=== PATIENT | male | born 1970 | race Asian ===

== ENCOUNTER 2016-10-20 00:31 | Emergency (ER) | payer SELFPAY ==
[~2016-10-20] VITALS: Ht 177.8 cm; Wt 89.8 kg
[~2016-10-20 00:31] MED LIST: ATEN50TA PO; CAT.1 PO; THIA100T13 PO
[2016-10-20 00:40] VITALS: BP_SYST 130
[2016-10-20] MEDS ORDERED: KETOROLAC TROMETHAMINE 30 MG VIAL IVP ONE (01:30)
[2016-10-20] MEDS ORDERED: fentaNYL CITRATE/PF 100 MCG/2 ML AMP IVP ONE ×2 (01:30→03:00)
[2016-10-20] MEDS ORDERED: NACL 0.9% 1,000 ML IV ONE (01:30)
[2016-10-20] MEDS ORDERED: LORazepam 2 MG/ML VIAL (FOR ER USE) IVP ONE ×2 (01:30→03:00)
[2016-10-20 03:37] VITALS: BP_SYST 122
== END 2016-10-20 03:37 | disposition home or self-care (01) ==
LOC: SED 00:31
DX: M48.02 Spinal stenosis, cervical region (principal); M48.04 Spinal stenosis, thoracic region; I10 Essential (primary) hypertension
CPT/HCPCS: 72125; 72128; 96361; 96374; 96375; 96376; 99284; J1885; J2060; J3010; J7030

== ENCOUNTER 2018-08-10 12:38 | Emergency (ER) | payer MEDICAID ==
[~2018-08-10] VITALS: Ht 177.8 cm; Wt 78.9 kg
[~2018-08-10 12:38] MED LIST changes: +ASPI-1153 PO; -CAT.1 PO; +LIP40 PO; +NIAC1CAP PO; -THIA100T13 PO
[2018-08-10 12:43] VITALS: BP_SYST 115
[2018-08-10] MEDS ORDERED: KETOROLAC TROMETHAMINE 60 MG/2 ML VIAL IM ONE (13:45)
[2018-08-10 14:50] VITALS: BP_SYST 111
== END 2018-08-10 14:50 | disposition home or self-care (01) ==
LOC: SED 12:38
DX: M25.561 Pain in right knee (principal); I10 Essential (primary) hypertension; Z90.89 Acquired absence of other organs; Z79.82 Long term (current) use of aspirin; Z79.899 Other long term (current) drug therapy; W19.XXXA Unspecified fall, initial encounter; Y93.68 Activity, volleyball (beach) (court); Y92.89 Other specified places as the place of occurrence of the external cause; Y99.8 Other external cause status
CPT/HCPCS: 29505; 73564; 99283; J1885

== ENCOUNTER 2018-11-26 16:07 | Inpatient (IN) | payer MEDICAID ==
[~2018-11-26] VITALS: Ht 177.8 cm; Wt 81.2 kg
[2018-11-26 16:15] VITALS: BP_SYST 136
--- NOTE | 2018-11-26 16:19 | NUR ---
Patient to ER bed 5 to gown for evaluation. Side rails up. Report given to SUSANNA ANTONIO .
--- NOTE | 2018-11-26 16:25 | NUR ---
Patient is awake, alert, and oriented x4. Patient is complaining of upper abdominal pain 9/10, since this morning. Patient reports history of pancreatitis. Patient reports nausea, sweating, burping.
--- NOTE | 2018-11-26 16:27 | NUR ---
ER Dr. Carrillo at bedside examining patient.
[2018-11-26 16:54] LABS: EOSINOPHILS % (AUTO) 0.2 % (0.0-4.0); HEMOGLOBIN 15.5 g/dL (14.0-18.0); RED CELL DISTRIBUTION WIDTH 12.9 % (9.0-15.0)
[2018-11-26 16:59] LABS: BASOPHILS % (AUTO) 0.3 % (0.0-2.0); HEMATOCRIT 45.4 % (36-54); LYMPHOCYTES % (AUTO) 7.1 % (20.5-51.5); MEAN CORPUSCULAR HEMOGLOBIN 32 pg (27-31); MEAN CORPUSCULAR HGB CONC 34 % (32-36); MEAN CORPUSCULAR VOLUME 93 fL (79.0-98.0); MONOCYTES # (AUTO) 0.5 K/uL (0.0-1.0); MONOCYTES % (AUTO) 3.7 % (1.7-9.3); NEUTROPHILS % (AUTO) 88.7 % (40.0-70.0); PLATELET COUNT (AUTO) 238 K/uL (130-430); WHITE BLOOD COUNT (AUTO) 14.6 K/uL (4.8-10.8)
[2018-11-26 17:06] LABS: CALCIUM 9.4 mg/dL (8.4-11.0); CREATININE 1.14 mg/dL (0.55-1.30); POTASSIUM 3.7 mmol/L (3.5-5.1)
[2018-11-26 17:07] LABS: PROTHROMBIN TIME 10.6 SECS (9.5-12.5)
[2018-11-26 17:19] LABS: ALBUMIN 4.1 g/dL (3.4-4.8); TOTAL BILIRUBIN 1.6 mg/dL (0.0-1.0)
[2018-11-26 17:29] LABS: BILIRUBIN,URINE NEGATIVE (NEGATIVE); BLOOD, URINE NEGATIVE (NEGATIVE); CLARITY/URINE CLEAR (CLEAR); GLUCOSE,URINE NEGATIVE (NEGATIVE); KETONES,URINE NEGATIVE (NEGATIVE); LEUKOCYTE ESTERASE ,URINE NEGATIVE (NEGATIVE); NITRITE, URINE NEGATIVE (NEGATIVE); PH,URINE 5.5 (5.0-8.0); PROTEIN URINE NEGATIVE (NEGATIVE); UROBILINOGEN,URINE 0.2 (0.2-1.0)
[2018-11-26 17:30] LABS: COLOR,URINE AMBER (YELLOW)
[2018-11-26] MEDS ORDERED: MORPHINE 4 MG/ML INJ. SYRINGE IVP ONE ×2 (17:45→18:30)
[2018-11-26] MEDS ORDERED: DIPHENHYDRAMINE INJ 50 MG/ML VIAL IVP ONE (17:45)
[2018-11-26] MEDS ORDERED: TYC3 PO (18:30)
[2018-11-26] MEDS ORDERED: CYAN100082 PO (18:30)
[2018-11-26] MEDS ORDERED: IBUP-1969 PO (18:30)
[2018-11-26] MEDS ORDERED: AMLO10TA88 PO (18:30)
--- NOTE | 2018-11-26 18:35 | NUR ---
Medication reconciliation completed with information provided by patient and patient's . Any prior medication reconciliation on file was reviewed and corrected.
[2018-11-26] MEDS ORDERED: FOLIC ACID 1 MG, THIAMINE HCL 100 MG, MAGNESIUM SULFATE 1 GM, MVI 10 ML in NACL 0.9% 1,... IV ONE (19:15)
[2018-11-26] MEDS ORDERED: MAGNESIUM SULFATE 1 GM/2 ML VIAL ONE (19:28)
[2018-11-26] MEDS ORDERED: FOLIC ACID 5 MG/ML VIAL IV ONE (19:28)
[2018-11-26] MEDS ORDERED: MVI 10 ML VIAL IV ONE (19:28)
[2018-11-26] MEDS ORDERED: THIAMINE HCL 100 MG/ML VIAL ONE (19:28)
--- NOTE | 2018-11-26 19:29 | NUR ---
Patient will be admitted to care of Dr. Canales. Admitted to Tele unit. Will go to room 106A. Belongings list completed. Summary report printed. Report will be given at bedside.
[2018-11-26] MEDS ORDERED: LORazepam 2 MG/ML VIAL IVP PRN (19:30)
[2018-11-26] MEDS ORDERED: FOLIC ACID 1 MG, THIAMINE HCL 100 MG, MAGNESIUM SULFATE 1 GM, MVI 10 ML in NACL 0.9% 1,... IV SCH (19:30)
--- NOTE | 2018-11-26 19:54 | NUR ---
ADMIT NOTE Received pt from ER to the floor with a diagnosis of acute pancreatitis, etoh intoxication. Admission process initiated. patient oriented to pain management, safety and call light-teach back done.
--- NOTE | 2018-11-26 19:54 | NUR ---
Transfer to Tele via ACLS protocol. Licensed nurse present. IV present no signs or symptoms of infiltration.
[2018-11-26 20:09] VITALS: BP_SYST 152
--- NOTE | 2018-11-26 21:05 | NUR ---
PAGED I PAGED DR. LAMB @ [phone] I SPOKE WITH JOSE NORAH LAMB CALLED BACK @ [phone]
[2018-11-26] MEDS ORDERED: HYDROmorphone 1 MG INJ. 1 MG/ML AMPUL IVP PRN (21:15)
--- NOTE | 2018-11-26 21:15 | NUR ---
PHONED PAGED DR ZAINAB SERRANO FOR ORDERS , PATIENT C/O ACUTE ABDOMINAL PAIN 03/12 .
[2018-11-26] MEDS ORDERED: HYDROmorphone 1 MG INJ. 1 MG/ML AMPUL ONE ×2 (21:28→23:24)
[2018-11-26] MEDS ORDERED: ONDANSETRON HCL 4 MG/2 ML VIAL ONE (21:29)
--- NOTE | 2018-11-26 22:51 | NUR ---
Admission Note Received patient from ER with diagnosis of ABDOMINAL PAIN. Initial Plan of Care discussed-patient verbalized understanding. Family at bedside. Oriented to room, call light, pain management and safety.
--- NOTE | 2018-11-26 22:56 | NUR ---
NEW ORDERS OBTAINED DR LAMB .
[2018-11-26] MEDS ORDERED: chlordiazePOXIDE HCL 25 MG CAPSULE PO SCH (23:15)
[2018-11-26] MEDS ORDERED: INSULIN REGULAR, HUMAN 100 UNITS/ML, 10 ML VIAL (novoLIN R) SUBCUT PRN (23:15)
[2018-11-26] MEDS ORDERED: MAG-AL HYDROX/SIMETH 30 ML UDC PO PRN (23:15)
[2018-11-26] MEDS ORDERED: DEXTROSE 50% JECT 50 ML DISP.SYRIN IVP PRN (23:15)
[2018-11-26] MEDS ORDERED: FAMOTIDINE PF 20 MG/2 ML VIAL IVP SCH (23:30)
[2018-11-26] MEDS ORDERED: HYDROmorphone 1 MG INJ. 1 MG/ML AMPUL IVP SCH (23:30)
[2018-11-26] MEDS ORDERED: MAG-AL HYDROX/SIMETH 30 ML UDC PO SCH (23:30)
[2018-11-27 00:08] VITALS: BP_SYST 136
[2018-11-27] MEDS: LR 1,000 ML IV SCH ×4 (00:18→19:15)
--- NOTE | 2018-11-27 00:55 | NUR ---
LORAZEPAM 1 MG IVP GIVEN FOR AGITATION & HELPFUL .
[2018-11-27] MEDS: HYDROmorphone 1 MG INJ. 1 MG/ML AMPUL IVP PRN ×6 (02:18→22:22)
--- NOTE | 2018-11-27 03:51 | NUR ---
DR ZAINAB SERRANO IN TO SEE PATIENT NEW ORDERS OBTAINED LIBRIUM 50 MG PO , LABS FOR THIS AM .
--- NOTE | 2018-11-27 04:02 | NUR ---
CONSULT: CONSULT CALLED FOR DR. JUNG I SPOKE WITH WITH [facility] [place] DR. CAMPA HEAD IRRIGATOR THIS MORNING REASON FOR CONSULT: ACUTE PANCREATITIS REQUESTING CONSULT: DR. LAMB INSIDE SALES LEAD PHONE NUMBER: [phone]
[2018-11-27 05:18] LABS: BASOPHILS % (AUTO) 0.2 % (0.0-2.0); EOSINOPHILS # (AUTO) 0.1 K/uL (0.0-0.4); HEMOGLOBIN 14.7 g/dL (14.0-18.0); LYMPHOCYTES # (AUTO) 0.9 K/uL (1.0-5.5); MEAN CORPUSCULAR HEMOGLOBIN 31 pg (27-31); MEAN CORPUSCULAR HGB CONC 34 % (32-36); MEAN CORPUSCULAR VOLUME 93 fL (79.0-98.0); MONOCYTES # (AUTO) 0.7 K/uL (0.0-1.0); MONOCYTES % (AUTO) 5.3 % (1.7-9.3); NEUTROPHILS # (AUTO) 10.7 K/uL (1.8-7.7); NEUTROPHILS % (AUTO) 86.5 % (40.0-70.0); PLATELET COUNT (AUTO) 205 K/uL (130-430); RED BLOOD CELL COUNT(AUTO) 4.71 MIL/uL (4.2-6.2); RED CELL DISTRIBUTION WIDTH 12.8 % (9.0-15.0); WHITE BLOOD COUNT (AUTO) 12.4 K/uL (4.8-10.8)
[2018-11-27 05:54] LABS: ALBUMIN 3.3 g/dL (3.4-4.8); CALCIUM 8.8 mg/dL (8.4-11.0); CREATININE 0.89 mg/dL (0.55-1.30); POTASSIUM 4.1 mmol/L (3.5-5.1); TOTAL BILIRUBIN 2.1 mg/dL (0.0-1.0)
--- NOTE | 2018-11-27 06:04 | NUR ---
PHONED PAGED DR ZAINAB SERRANO LIPASE [phone]
--- NOTE | 2018-11-27 07:45 | NUR ---
INITIAL ROUNDS Received pt AAOx4, no s/s resp distress, c/o pain to upper abd-will check on pain medication. Plan of care for the day reviewed with pt-pt verbalized his understanding. IVF infusing well to LAC at ordered rate with no s/s infiltration to site. Pain management, disease process, skin and safety discussed-teach back done. Call light within reach.
[2018-11-27 07:48] VITALS: BP_SYST 159
[2018-11-27] MEDS: FAMOTIDINE PF 20 MG/2 ML VIAL IVP SCH ×2 (08:34→21:22)
[2018-11-27] MEDS ORDERED: chlordiazePOXIDE HCL 25 MG CAPSULE PO SCH ×2 (09:00)
[2018-11-27] MEDS ORDERED: FOLIC ACID 1 MG, THIAMINE HCL 100 MG, MAGNESIUM SULFATE 1 GM, MVI 10 ML in NACL 0.9% 1,... IV SCH (09:15)
[2018-11-27] MEDS: ONDANSETRON HCL 4 MG/2 ML VIAL IVP PRN ×2 (11:26→21:19)
[2018-11-27] MEDS ORDERED: FOLIC ACID 1 MG TABLET PO ONE (11:30)
[2018-11-27] MEDS ORDERED: THIAMINE HCL 100 MG TABLET PO ONE (11:30)
--- NOTE | 2018-11-27 11:35 | NUR ---
ROUNDS/PAIN Pt c/o severe pain 10/10 to upper right abd-pt given Dilaudid as ordered, pt also c/o nausea-pt given Zofran as ordered. Light turned down low, curtain pulled to promote rest. Pt's at the bedside. Valerie the [employer] called and informed that the patient is ready for his ultrasound-she stated she is coming now. Call light within reach.
[2018-11-27] MEDS ORDERED: PIPERACILLIN/TAZO 3.375/DEX-IS 50 ML IV ONE (12:00)
[2018-11-27] MEDS ORDERED: GABAPENTIN 300 MG CAPSULE PO ONE (12:30)
[2018-11-27] MEDS ORDERED: HYDROmorphone 2 MG TAB PO PRN (12:30)
[2018-11-27] MEDS: chlordiazePOXIDE HCL 25 MG CAPSULE PO SCH ×3 (13:00→21:29)
[2018-11-27 13:44] VITALS: BP_SYST 149
[2018-11-27] MEDS ORDERED: DIATR MEGLU/DIATRIZ SOD 30 ML SOLUTION PO ONE (13:45)
[2018-11-27] MEDS ORDERED: IOHEXOL 100 ML IV ONE (15:20)
[2018-11-27 17:15] VITALS: BP_SYST 148
[2018-11-27] MEDS: PIPERACILLIN/TAZO 3.375/DEX-IS 50 ML IV SCH (18:39)
--- NOTE | 2018-11-27 18:49 | NUR ---
CLOSING NOTE Pt now resting quietly in bed with no s/s resp distress, no further c/o pain or discomfort. IVF infusing well to LAC at ordered rate with no s/s infiltration to site. Pt's remains at bedside. Pt refusing to take anything by mouth due to it irritating his stomach. Call light within reach.
[2018-11-27 20:20] VITALS: BP_SYST 164
--- NOTE | 2018-11-27 20:20 | NUR ---
INITIAL NOTES: BEDSIDE REPORT DONE.VITAL SIGNS TAKEN.PATIENT IN BED EYES CLOSE ,OPENS WHEN CALLED HIS NAME. ALERT,ORIENTED X3 ,ROOM AIR,SUPINE POSITION, COMPLAINS OF SEVERE ABDOMINAL PAIN ,STATED PAIN MEDICINES GIVEN IS NOT WORKING.ASKED WHEN IS NEXT DUE. TOLD HIM AT 2230HR. JOHN SAYS THAT IS TOO LONG,CAN YOU SOMETHING BEFORE THE TIME OR CALL THE DOCTOR. TENDER ABDOMEN DURING LIGHT PALPATION. AT BEDSIDE.IVF OF LR INFUSING AT 150ML/HR TO LEFT AC SITE CLEAR. BP SLIGHT ELEVATED. SINUS RHYTHM ON MONITOR. WILL MONITOR CLOSELY AND WILL CALL MD. WARM COMPRESS TO ABDOMEN APPLIED SLIGHT RELIEF.
--- NOTE | 2018-11-27 21:05 | NUR ---
CALLED BACK: Massimo LAWRENCE ANSWERED PAGE ,INFORMED PATIENT NEEDS MORE PAIN MEDS ,SINCE CURRENT IV PAIN MEDS NOT WORKING WITH ORDERS. WILL CARRY THEM ONCE AVAILABLE. SAID TO EDUCATE PATIENT NEED OF LIBRUIM /NEURONTIN /DILAUDID PO/IV. DONE.
--- NOTE | 2018-11-27 21:10 | NUR ---
ACCU CHECK: BLOOD SUGAR RESULT 108MG/DL.TOOK PO MEDS AFTER EXPLAINING EFFECTS AND SIDE EFFECTS,AFTER ZOFRAN IV GIVEN. TOOK IT WITH SMALL WATER. REFUSE TO HAVE DINNER CLEAR LIQUIDS.
[2018-11-27] MEDS ORDERED: LORazepam 2 MG/ML VIAL IVP PRN (21:15)
[2018-11-27] MEDS: GABAPENTIN 300 MG CAPSULE PO SCH (21:29)
--- NOTE | 2018-11-27 21:40 | NUR ---
OFFERED DILAUDID IV THIS TIME BUT SAID I NEED AT 10PM. EXPLAINED ALL ORDERS RECEIVED.
--- NOTE | 2018-11-27 22:20 | NUR ---
PAIN: PATIENT CALLED DUE TO SEVERE ABDOMINAL PAIN. LEVEL 8-9/10. DILAUDID 1MG IV GIVEN ORDERED.
[2018-11-28] MEDS: LR 1,000 ML IV SCH ×2 (00:23→09:05)
[2018-11-28] MEDS: PIPERACILLIN/TAZO 3.375/DEX-IS 50 ML IV SCH ×5 (00:24→23:24)
[2018-11-28] MEDS: HYDROmorphone 2 MG TAB PO SCH ×5 (00:27→23:24)
--- NOTE | 2018-11-28 00:27 | NUR ---
PAIN: ROUTINE DILAUDID PO GIVEN 2MG ORDERED,LEVEL 7/10.
--- NOTE | 2018-11-28 00:30 | NUR ---
VOID: VOIDED DARK OSIRIS COLOR URINE VIA URINAL .
[2018-11-28 00:50] VITALS: BP_SYST 145
[2018-11-28] MEDS: chlordiazePOXIDE HCL 25 MG CAPSULE PO SCH ×6 (01:27→21:32)
--- NOTE | 2018-11-28 01:30 | NUR ---
LIBRUIM 50MG PO TAKEN WITHOUT PROBLEM.
--- NOTE | 2018-11-28 03:30 | NUR ---
ROUNDS: PATIENT SLEEPING. IVF INFUSING. AT BEDSIDE. NO DISTRESS. CALL LIGHT WITHIN REACH.
[2018-11-28 04:20] VITALS: BP_SYST 129
[2018-11-28] MEDS: HYDROmorphone 1 MG INJ. 1 MG/ML AMPUL IVP PRN ×2 (04:28→14:43)
--- NOTE | 2018-11-28 04:28 | NUR ---
PAIN: COMPLAIN OF ABDOMINAL PAIN LEVEL 7/10. GRIMACING DURING TURNING TO SIDES. DILAUDID 1 MG IV GIVEN ORDERED.
[2018-11-28 06:18] LABS: BASOPHILS % (AUTO) 0.1 % (0.0-2.0); EOSINOPHILS # (AUTO) 0.1 K/uL (0.0-0.4); HEMOGLOBIN 13.3 g/dL (14.0-18.0); LYMPHOCYTES # (AUTO) 0.9 K/uL (1.0-5.5); LYMPHOCYTES % (AUTO) 6.7 % (20.5-51.5); MEAN CORPUSCULAR HEMOGLOBIN 31 pg (27-31); MEAN CORPUSCULAR HGB CONC 33 % (32-36); MEAN CORPUSCULAR VOLUME 94 fL (79.0-98.0); MONOCYTES # (AUTO) 0.9 K/uL (0.0-1.0); MONOCYTES % (AUTO) 6.2 % (1.7-9.3); NEUTROPHILS # (AUTO) 11.8 K/uL (1.8-7.7); PLATELET COUNT (AUTO) 168 K/uL (130-430); RED BLOOD CELL COUNT(AUTO) 4.26 MIL/uL (4.2-6.2); RED CELL DISTRIBUTION WIDTH 12.6 % (9.0-15.0); WHITE BLOOD COUNT (AUTO) 13.8 K/uL (4.8-10.8)
[2018-11-28 06:24] LABS: ALBUMIN 2.6 g/dL (3.4-4.8); CALCIUM 8.8 mg/dL (8.4-11.0); CREATININE 1.02 mg/dL (0.55-1.30); POTASSIUM 4.8 mmol/L (3.5-5.1); TOTAL BILIRUBIN 1.6 mg/dL (0.0-1.0)
--- NOTE | 2018-11-28 06:35 | NUR ---
CLOSING: ALL DUE MEDS GIVEN. BLOOD SUGAR 89MG/DL. REFUSE ANY JUICE. ON CLEAR LIQUIDS. ALL NEEDS WERE ATTENDED. PAIN FAIRLY CONTROLLED AFTER TAKING PO/IV PAIN MEDS. NO SEIZURE DURING THE SHIFT. NO AGITATION. WILL ENDORSED CRITICAL VALUE OF LIPASE TO AM RN. DID PAGE GI NO CALL BACK.
--- NOTE | 2018-11-28 07:13 | NUR ---
Gi md Dr Louisa Starks was called, Re: CRITICAL lipase level.. Spoke to Sandra.
[2018-11-28 08:00] VITALS: BP_SYST 133
[2018-11-28] MEDS: THIAMINE HCL 100 MG TABLET PO SCH (09:06)
[2018-11-28] MEDS: GABAPENTIN 300 MG CAPSULE PO SCH ×3 (09:07→21:29)
[2018-11-28] MEDS: FAMOTIDINE PF 20 MG/2 ML VIAL IVP SCH ×2 (09:07→21:30)
[2018-11-28] MEDS: FOLIC ACID 1 MG TABLET PO SCH (09:07)
--- NOTE | 2018-11-28 10:36 | NUR ---
ROUNDS Pt resting quietly in bed with no s/s resp distress, pt states pain tolerable at this time. Pt took tablets this morning, pt declining clear liquid tray this morning-stated he "wants to let his stomach rest". Pt's linens changed, given fresh gown. Needs met, call light within reach.
--- NOTE | 2018-11-28 13:35 | NUR ---
ROUNDS Pt resting quietly in bed with no s/s resp distress, pt states pain now tolerable. Pt trying small amounts of juice. Pt's remains at bedside. Call light within reach.
--- NOTE | 2018-11-28 14:24 | NUR ---
Psych consult called: for Dr. Mckinney, regarding alcoholism, ordered by Dr. Canales, spoke with [facility]. FACE SHEET faxed to [phone]
[2018-11-28 15:01] LABS: ANION GAP 5 (5-15); CALCIUM 8.5 mg/dL (8.4-11.0); CHLORIDE 100 mmol/L (98-107); CREATININE 1.04 mg/dL (0.55-1.30); GLUCOSE 91 mg/dL (70-99); POTASSIUM 4.5 mmol/L (3.5-5.1); SODIUM SERUM 136 mmol/L (136-145); UREA NITROGEN, BLOOD 8 mg/dL (8-21)
[2018-11-28 15:02] LABS: GFR AFRICAN AMERICAN 98 mL/min (>90)
[2018-11-28 15:07] LABS: ALCOHOL, BLOOD < 3 mg/dL (<10)
[2018-11-28] MEDS: FOLIC ACID 1 MG, THIAMINE HCL 100 MG, MAGNESIUM SULFATE 1 GM, MVI 10 ML in NACL 0.9% 1,... IV SCH (15:27)
--- NOTE | 2018-11-28 19:24 | NUR ---
CLOSING NOTE Pt resting quietly in bed with no s/s resp distress, no c/o pain or discomfort. Pt's family at bedside. Banana bag infusing well at ordered rate with no s/s infiltration to site. Needs met, call light within reach.
--- NOTE | 2018-11-28 19:40 | NUR ---
Initial Note Received patient asleep but easily arousable. Awake, alert and oriented but looks sleepy. Family at the bedside. No SOB noted. Denies any pain or n/v at this time. IVF infusing. Skin intact and no peripheral edema noted. Room air. Patient was transferred from room 106-A to 113-B. Care and monitoring will be provided per protocol. Call light within reach. Bed alarm on and at lowest position at all times. Needs attended. Repositions self. Kept warm and comfortable.
[2018-11-28 20:00] VITALS: BP_SYST 125
--- NOTE | 2018-11-28 21:32 | NUR ---
RN Note Due meds given, tolerated well. Patient ambulated around the unit with his with steady gait and no SOB. Safety/fall precautions advised.
--- NOTE | 2018-11-28 23:15 | NUR ---
Dr. Canales re fever Called Dr. Canales for patient's fever of 101.9. Orders made and carried out. Notified lab of Blood culture x2 and lactic acid. airport representative [place] h[place].
[2018-11-28] MEDS: ACETAMINOPHEN 325 MG TABLET PO PRN (23:24)
--- NOTE | 2018-11-28 23:24 | NUR ---
Fever medication Medicated for fever and due meds are also given as well. Cooling measures provided as well as ice packs. Advised patient's that we need urine culture and provided new urinal at the bedside. Repositions himself. No SOB noted and denies any pain. Kept comfortable.
--- NOTE | 2018-11-28 23:39 | NUR ---
CONSULTATION PAGED/CALLED Reason for Consultation: FEVER Person Who was Notified: RODOLFO Consulting Physician: DR. BELLO (ON-CALL IS DR. 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 LAMB
[2018-11-29 00:10] VITALS: BP_SYST 118
[2018-11-29] MEDS: chlordiazePOXIDE HCL 25 MG CAPSULE PO SCH ×6 (00:31→20:37)
--- NOTE | 2018-11-29 01:00 | NUR ---
RN Note Patient asleep but arousable. No complaints at this time. Afebrile. at the bedside. Kept warm and comfortable.
--- NOTE | 2018-11-29 03:00 | NUR ---
RN Note Sleeping at this time. No SOB or grimacing noted.
[2018-11-29] MEDS: PIPERACILLIN/TAZO 3.375/DEX-IS 50 ML IV SCH ×3 (05:46→17:17)
[2018-11-29] MEDS: HYDROmorphone 2 MG TAB PO SCH ×2 (05:47→11:26)
--- NOTE | 2018-11-29 06:00 | NUR ---
BS of 58 and 54 Patient is awake and alert, a little weak. at the bedside. Blood sugar was 54 , rechecked 58. D50 given. No complain of dizziness, shakiness and other signs of hypoglycemia. Will recheck blood sugar later.
[2018-11-29 06:46] LABS: ALBUMIN 2.3 g/dL (3.4-4.8); BILIRUBIN,DIRECT 0.6 mg/dL (0.0-0.3); CALCIUM 8.7 mg/dL (8.4-11.0); CREATININE 1.11 mg/dL (0.55-1.30); POTASSIUM 3.6 mmol/L (3.5-5.1); TOTAL BILIRUBIN 1.5 mg/dL (0.0-1.0)
--- NOTE | 2018-11-29 06:49 | NUR ---
End Note Afebrile. VS stable. No complain of SOB, pain, or n/v throughout the night. was at the bedside all night. Ambulates well with assist. said that patient has been having hallucinations at times-will endorse. Room air. Latest blood sugar (rechecked) was 138. Self reposition. Need urine specimen for culture-will endorse. Refused SCDs. AM labs today. Had fever at [place] 101.9, Dr. Canales was called and orders were made and carried out. Fall precaution observed. Care and monitoring provided per protocol. Call light within reach. Bed alarm on and at lowest position at all times. Needs attended. Kept warm and comfortable.
[2018-11-29 06:56] LABS: BASOPHILS % (AUTO) 0.3 % (0.0-2.0); EOSINOPHILS # (AUTO) 0.4 K/uL (0.0-0.4); EOSINOPHILS % (AUTO) 3.8 % (0.0-4.0); HEMATOCRIT 36.8 % (36-54); HEMOGLOBIN 12.3 g/dL (14.0-18.0); LYMPHOCYTES # (AUTO) 1.2 K/uL (1.0-5.5); LYMPHOCYTES % (AUTO) 11.7 % (20.5-51.5); MEAN CORPUSCULAR HEMOGLOBIN 32 pg (27-31); MEAN CORPUSCULAR HGB CONC 34 % (32-36); MEAN CORPUSCULAR VOLUME 95 fL (79.0-98.0); MONOCYTES # (AUTO) 0.7 K/uL (0.0-1.0); MONOCYTES % (AUTO) 6.3 % (1.7-9.3); NEUTROPHILS # (AUTO) 8.3 K/uL (1.8-7.7); NEUTROPHILS % (AUTO) 77.9 % (40.0-70.0); PLATELET COUNT (AUTO) 145 K/uL (130-430); RED BLOOD CELL COUNT(AUTO) 3.88 MIL/uL (4.2-6.2); RED CELL DISTRIBUTION WIDTH 12.6 % (9.0-15.0); WHITE BLOOD COUNT (AUTO) 10.6 K/uL (4.8-10.8)
--- NOTE | 2018-11-29 07:25 | NUR ---
AM ROUNDS: PATIENT ON THE BED FAST ASLEEP. RECEIVED REPORT FROM NIGHT NURSE ALLY. CALL LIGHT WITH IN REACH. BED LOCKED AT LOWEST POSITION. STABLE.
[2018-11-29 08:17] VITALS: BP_SYST 120
[2018-11-29] MEDS: FAMOTIDINE PF 20 MG/2 ML VIAL IVP SCH ×2 (08:39→20:36)
[2018-11-29] MEDS: ACETAMINOPHEN 325 MG TABLET PO PRN (08:39)
[2018-11-29] MEDS: THIAMINE HCL 100 MG TABLET PO SCH (08:40)
[2018-11-29] MEDS: FOLIC ACID 1 MG TABLET PO SCH (08:40)
[2018-11-29] MEDS: GABAPENTIN 300 MG CAPSULE PO SCH ×3 (08:40→20:38)
--- NOTE | 2018-11-29 09:00 | NUR ---
TEMP: RECHECKED TEMP ,FEBRILE COOLING MEASURES RENDERED AND DUE PO TYLENOL GIVEN FOR FEVER.
--- NOTE | 2018-11-29 09:31 | NUR ---
FOLLOW UP CONSULT : SPOKE WITH YE FROM OFFICE ,FACE SHEET NEEDED TO BE RESENT .RESENT FACE SHEET FAX#[phone]
--- NOTE | 2018-11-29 11:30 | NUR ---
BLOOD SUGAR: BLOOD SUGAR TAKEN,NO INSULIN NEEDED PER SLIDING SCALE.
--- NOTE | 2018-11-29 12:00 | NUR ---
LUNCH: PATIENT HAVING FULL LIQUID,TOLERATED WELL.
[2018-11-29 12:17] VITALS: BP_SYST 113
--- NOTE | 2018-11-29 13:00 | NUR ---
BACLOFEN: BACLOFEN PO NOT GIVEN PATIENT DUE TO O2 SATURATION DECREASED TO 90%,MD NOTIFIED. PLACED PATIENT ON O2 2L/NC,O2 SAT=91%.
[2018-11-29] MEDS: FOLIC ACID 1 MG, THIAMINE HCL 100 MG, MAGNESIUM SULFATE 1 GM, MVI 10 ML in NACL 0.9% 1,... IV SCH (15:44)
[2018-11-29 16:18] VITALS: BP_SYST 104
--- NOTE | 2018-11-29 17:26 | NUR ---
BLOOD SUGAR: BLOOD SUGAR TAKEN ,NO INSULIN NEEDED PER SLIDING SCALE.
--- NOTE | 2018-11-29 17:30 | NUR ---
TEMP: RECHECKED TEMP=98.4 FAHRENHEIT,AFEBRILE.
--- NOTE | 2018-11-29 18:13 | NUR ---
PT WALKING WITH ASSIST: PATIENT WALKING WITH ASSISTING IN THE HALLWAY,WITH NO PROBLEM.
[2018-11-29] MEDS ORDERED: HYDROmorphone 1 MG INJ. 1 MG/ML AMPUL IVP PRN (19:00)
--- NOTE | 2018-11-29 19:30 | NUR ---
closing notes: patient sitting on the chair by the window. report given to night nurse luis. no complained made. instructed to call for assistance.
[2018-11-29 19:53] VITALS: BP_SYST 134
--- NOTE | 2018-11-29 19:59 | NUR ---
PATIENT AWAKE ALERT ambulating in room verbally indicative FALL MEASURES implemented PT verbalize understanding .
--- NOTE | 2018-11-29 22:11 | NUR ---
LIBRIUM 25 MG PO administer as ordered for alcohol with drawl fall measures implemented .
[2018-11-30 00:31] VITALS: BP_SYST 128
[2018-11-30] MEDS: PIPERACILLIN/TAZO 3.375/DEX-IS 50 ML IV SCH ×4 (00:42→17:30)
[2018-11-30] MEDS: chlordiazePOXIDE HCL 25 MG CAPSULE PO SCH ×6 (00:42→20:24)
[2018-11-30] MEDS: HYDROmorphone 2 MG TAB PO SCH ×3 (02:00→18:00)
--- NOTE | 2018-11-30 02:19 | NUR ---
PATIENT UP OUT OF BED USING URINAL CLEAR YELLOW URINE NOTED , TOLERATE NO SON NOTED .
--- NOTE | 2018-11-30 02:20 | NUR ---
REFUSE DILAUDID 2 MG PO .
[2018-11-30 06:50] LABS: BASOPHILS % (AUTO) 0.3 % (0.0-2.0); EOSINOPHILS # (AUTO) 0.5 K/uL (0.0-0.4); HEMATOCRIT 32.6 % (36-54); LYMPHOCYTES % (AUTO) 11.1 % (20.5-51.5); MEAN CORPUSCULAR HEMOGLOBIN 32 pg (27-31); MEAN CORPUSCULAR HGB CONC 34 % (32-36); MEAN CORPUSCULAR VOLUME 95 fL (79.0-98.0); MONOCYTES # (AUTO) 0.8 K/uL (0.0-1.0); NEUTROPHILS # (AUTO) 6.8 K/uL (1.8-7.7); NEUTROPHILS % (AUTO) 74.6 % (40.0-70.0); PLATELET COUNT (AUTO) 147 K/uL (130-430); RED BLOOD CELL COUNT(AUTO) 3.43 MIL/uL (4.2-6.2); RED CELL DISTRIBUTION WIDTH 12.4 % (9.0-15.0); WHITE BLOOD COUNT (AUTO) 9.1 K/uL (4.8-10.8)
[2018-11-30 07:15] LABS: ALBUMIN 2.1 g/dL (3.4-4.8); CALCIUM 8.3 mg/dL (8.4-11.0); CREATININE 0.97 mg/dL (0.55-1.30); TOTAL BILIRUBIN 1.1 mg/dL (0.0-1.0)
--- NOTE | 2018-11-30 07:25 | NUR ---
AM ROUNDS: PATIENT FAST ASLEEP DURING ROUNDS. BEDSIDE REPORT GIVEN BY NIGHT NURSE FERNANDO. CALL LIGHT WITH IN REACH. BED LOCKED AT LOWEST POSITION. BED ALARM ON. STABLE.
[2018-11-30 08:06] VITALS: BP_SYST 114
[2018-11-30] MEDS: FAMOTIDINE PF 20 MG/2 ML VIAL IVP SCH ×2 (08:26→20:23)
[2018-11-30] MEDS: THIAMINE HCL 100 MG TABLET PO SCH (08:26)
[2018-11-30] MEDS: FOLIC ACID 1 MG TABLET PO SCH (08:26)
[2018-11-30] MEDS: GABAPENTIN 300 MG CAPSULE PO SCH ×3 (08:34→20:24)
--- NOTE | 2018-11-30 08:36 | NUR ---
Refused Librium/Neurontin: Spoke with this morning and requested not to give librium/neurontin due to patient is confused.
--- NOTE | 2018-11-30 11:32 | NUR ---
BLOOD SUGAR: BLOOD SUGAR TAKEN,NO INSULIN COVERAGE PER SLIDING SCALE.
[2018-11-30 12:36] VITALS: BP_SYST 112
--- NOTE | 2018-11-30 15:30 | NUR ---
SNACKS: PATIENT REQUESTED A SNACK BECAUSE HE IS HUNGRY. PATIENT ATE VEGETARIAN BURGER AND TOLERATED IT WELL.
[2018-11-30] MEDS: FOLIC ACID 1 MG, THIAMINE HCL 100 MG, MAGNESIUM SULFATE 1 GM, MVI 10 ML in NACL 0.9% 1,... IV SCH (15:39)
[2018-11-30 17:07] VITALS: BP_SYST 100
--- NOTE | 2018-11-30 17:12 | NUR ---
BLOOD SUGAR: BLOOD SUGAR TAKEN, NO INSULIN NEEDED PER SLIDING SCALE.
--- NOTE | 2018-11-30 18:20 | NUR ---
RN NOTES: POTASSIUM =3.0,DR MELENDREZIUM HEATER ROOM HELPER FOR DR LAMB INFORMED DURING HIS ROUNDS THIS TIME.
--- NOTE | 2018-11-30 18:30 | NUR ---
END OF SHIFT: PATIENT RESTING. AT THE BEDSIDE. BANANA BAG ON GOING. CALL LIGHT WITH IN REACH. BED LOCKED AT LOWEST POSITION.BED ALARM ON. CONDITION GUARDED.
[2018-11-30] MEDS ORDERED: POTASSIUM CHLORIDE 20 MEQ/PKT PACKET PO ONE (19:30)
[2018-11-30 20:00] VITALS: BP_SYST 114
[2018-11-30] MEDS ORDERED: MEROPENEM 500 MG VIAL IV ONE (21:07)
--- NOTE | 2018-11-30 21:15 | NUR ---
PATIENT REFUSE LIBRIUM 25 MG PO
[2018-11-30] MEDS: MEROPENEM 1 GM in NS 100 ML IV SCH (21:43)
--- NOTE | 2018-11-30 22:54 | NUR ---
MERREM 1 GM IVPB administer as ordered patient awake alert no adverse reaction skin dry warm .
--- NOTE | 2018-11-30 22:56 | NUR ---
DILAUDID 1 MG IVP GIVEN FOR GENERAL PAIN /10 comfort measures helpful .
[2018-11-30 23:12] VITALS: BP_SYST 102
[2018-12-01] MEDS: chlordiazePOXIDE HCL 25 MG CAPSULE PO SCH ×2 (01:00→05:00)
[2018-12-01] MEDS: HYDROmorphone 2 MG TAB PO SCH (02:00)
--- NOTE | 2018-12-01 03:33 | NUR ---
patient awake out of room ambulating assist @ the bedside FALL RISK PROTOCOL effective no SOB noted .
--- NOTE | 2018-12-01 03:38 | NUR ---
PATIENT REFUSE DILAUDID 2 MG PO
[2018-12-01] MEDS: MEROPENEM 1 GM in NS 100 ML IV SCH (06:00)
--- NOTE | 2018-12-01 07:15 | NUR ---
received report from raimundo nurse at the bedside. patient stable. afebrile and vitals signs stable. has iv access on the left forearm dry and intact. breathing even and unlabored. abdomen soft and non distended. will continue to monitor patients status. bed in low position. call lights within reach. ambulatory
[2018-12-01 07:53] VITALS: BP_SYST 120
[2018-12-01] MEDS: GABAPENTIN 300 MG CAPSULE PO SCH (08:44)
[2018-12-01] MEDS: THIAMINE HCL 100 MG TABLET PO SCH (08:44)
[2018-12-01] MEDS: FOLIC ACID 1 MG TABLET PO SCH (08:45)
[2018-12-01] MEDS ORDERED: POTASSIUM CHLORIDE 20 MEQ/PKT PACKET PO SCH (09:00)
--- NOTE | 2018-12-01 09:00 | NUR ---
medication given as ordered. no pain nor acute distress noted.
--- NOTE | 2018-12-01 09:34 | NUR ---
PAGED PAGED JOANNA LEVY AT [phone] SPOKE WITH HIS EXCHANGE, THEY INFORMED ME THAT LILIAN PENG IS SECURITIES CONSULTANT.
--- NOTE | 2018-12-01 09:40 | NUR ---
dr plummer call back, its okay, if patient refused to stay. let signed [place] form discharge against medical advice.
--- NOTE | 2018-12-01 09:48 | NUR ---
Nutrition Update Ephraim Scale 18 noted. Pt admitted for acute pancreatitis, alcohol intoxication. Diet: CCHO, soft, vegan BMI: 25.7 kg/m2 RD to follow per nutrition care standards.
--- NOTE | 2018-12-01 09:54 | NUR ---
patient left in stable condition, refused to have wheelchair. will go home discharge against medical advice. and signed by the patient. scdh id band removed. iv access removed. instructed to follow up with primary care doctor.
--- NOTE | 2018-12-01 18:59 | NUR ---
the patient left a message For Dr. Canales or whoever is covering. his cell phone number is [phone]. please inform the doctor if he needs any prescription or treatment to continue at home, if it is possible.
== END 2018-12-01 09:54 | disposition left against medical advice (07) | DRG 282 ==
LOC: SED 16:07 → STU 19:21 → SMU 11-28 15:39
PROVIDERS: ADMIT Internal Medicine; ATTEND Internal Medicine
DX: K85.20 Alcohol induced acute pancreatitis without necrosis or infection (principal); R65.10 Systemic inflammatory response syndrome (SIRS) of non-infectious origin without acute organ dysfunction; E78.5 Hyperlipidemia, unspecified; Z53.21 Procedure and treatment not carried out due to patient leaving prior to being seen by health care provider; I10 Essential (primary) hypertension; F10.129 Alcohol abuse with intoxication, unspecified; F40.10 Social phobia, unspecified; F41.1 Generalized anxiety disorder; Z79.82 Long term (current) use of aspirin; Z79.899 Other long term (current) drug therapy
CPT/HCPCS: 36415; 76700-TC; 80048; 80053; 80061; 80076; 81003; 82150-TC; 82962; 83605; 83690-TC; 84478-TC; 85025; 85610-TC; 87040-TC; 87086; 93005; 96365; 96375; 96376; 99285; G0378; G0482; J1170; J1200; J1815; J2060; J2185; J2270; J2405; J2543; J3411; J3475; J3490; J7030; J7120; Q9964; Q9967

== ENCOUNTER 2019-03-11 20:49 | Inpatient (IN) | payer MEDICAID ==
[~2019-03-11] VITALS: Ht 177.8 cm; Wt 83.5 kg
[~2019-03-11 20:49] MED LIST changes: +AMLO10TA88 PO; -ATEN50TA PO; -NIAC1CAP PO
[2019-03-11 20:58] VITALS: BP_SYST 140
[2019-03-11 21:21] LABS: BILIRUBIN,URINE NEGATIVE (NEGATIVE); BLOOD, URINE NEGATIVE (NEGATIVE); CLARITY/URINE CLEAR (CLEAR); COLOR,URINE YELLOW (YELLOW); GLUCOSE,URINE NEGATIVE (NEGATIVE); KETONES,URINE NEGATIVE (NEGATIVE); LEUKOCYTE ESTERASE ,URINE NEGATIVE (NEGATIVE); NITRITE, URINE NEGATIVE (NEGATIVE); PROTEIN URINE NEGATIVE (NEGATIVE); UROBILINOGEN,URINE 0.2 (0.2-1.0)
[2019-03-11] MEDS ORDERED: ONDANSETRON HCL 4 MG/2 ML VIAL IVP ONE (21:22)
[2019-03-11] MEDS ORDERED: ONDANSETRON HCL 4 MG/2 ML VIAL ONE (21:26)
[2019-03-11] MEDS ORDERED: NACL 0.9% 1,000 ML IV ONE ×2 (21:30→22:45)
[2019-03-11] MEDS ORDERED: MORPHINE 4 MG/ML INJ. SYRINGE IVP ONE ×2 (21:30→23:30)
[2019-03-11 21:43] LABS: BASOPHILS # (AUTO) 0.1 K/uL (0.0-0.2); BASOPHILS % (AUTO) 0.6 % (0.0-2.0); EOSINOPHILS % (AUTO) 0.3 % (0.0-4.0); HEMATOCRIT 43.3 % (36-54); HEMOGLOBIN 14.8 g/dL (14.0-18.0); LYMPHOCYTES # (AUTO) 1.5 K/uL (1.0-5.5); LYMPHOCYTES % (AUTO) 13.7 % (20.5-51.5); MEAN CORPUSCULAR HEMOGLOBIN 32 pg (27-31); MEAN CORPUSCULAR HGB CONC 34 % (32-36); MEAN CORPUSCULAR VOLUME 93 fL (79.0-98.0); MONOCYTES # (AUTO) 0.6 K/uL (0.0-1.0); MONOCYTES % (AUTO) 5.3 % (1.7-9.3); NEUTROPHILS # (AUTO) 8.5 K/uL (1.8-7.7); NEUTROPHILS % (AUTO) 80.1 % (40.0-70.0); RED BLOOD CELL COUNT(AUTO) 4.65 MIL/uL (4.2-6.2); RED CELL DISTRIBUTION WIDTH 12.8 % (9.0-15.0); WHITE BLOOD COUNT (AUTO) 10.6 K/uL (4.8-10.8)
[2019-03-11 21:50] LABS: ANION GAP 15 (5-15); CALCIUM 8.6 mg/dL (8.4-11.0); CHLORIDE 100 mmol/L (98-107); CREATININE 1.06 mg/dL (0.55-1.30); GLUCOSE 175 mg/dL (70-99); POTASSIUM 3.9 mmol/L (3.5-5.1); SODIUM SERUM 137 mmol/L (136-145); UREA NITROGEN, BLOOD 14 mg/dL (8-21)
[2019-03-11 21:53] LABS: GFR AFRICAN AMERICAN 95 mL/min (>90)
[2019-03-11 21:58] LABS: ALANINE AMINOTRANSFERASE 57 U/L (12-78); ALBUMIN 3.8 g/dL (3.4-4.8); AMYLASE 127 U/L (0-100); ASPARTATE AMINOTRANSFERASE 44 U/L (10-37); LIPASE 895 U/L (73-393); TOTAL BILIRUBIN 0.9 mg/dL (0.0-1.0)
[2019-03-11 21:59] LABS: PLATELET COUNT (AUTO) 300 K/uL (130-430)
[2019-03-11] MEDS ORDERED: LORazepam 1 MG TABLET PO SCH (22:45)
[2019-03-11] MEDS ORDERED: MORPHINE 4 MG/ML INJ. SYRINGE IVP PRN (22:45)
[2019-03-11] MEDS ORDERED: HYDROcodone/ACETAMIN 7.5-325 MG TAB PO PRN (22:45)
[2019-03-11] MEDS ORDERED: IOHEXOL 100 ML IV ONE (23:01)
[2019-03-11] MEDS ORDERED: CAPT25TA3 PO (23:21)
[2019-03-11] MEDS ORDERED: ASPI-1077 PO (23:21)
[2019-03-11 23:51] VITALS: BP_SYST 134
[2019-03-12] VITALS (7 sets, daily range): BP systolic 134–149
[2019-03-12] MEDS: LORazepam 2 MG/ML VIAL IVP SCH ×2 (00:45→06:00)
[2019-03-12] MEDS: ONDANSETRON HCL 4 MG/2 ML VIAL IVP PRN ×2 (01:33→08:29)
[2019-03-12] MEDS ORDERED: HYDROmorphone 2 MG/ML VIAL IVP PRN (03:00)
[2019-03-12 03:45] LABS: PHOSPHORUS 5.4 mg/dL (2.7-4.5)
[2019-03-12] MEDS: HYDROmorphone 2 MG/ML VIAL IVP PRN ×5 (05:45→21:28)
[2019-03-12] MEDS ORDERED: FOLIC ACID 1 MG, THIAMINE HCL 100 MG, MAGNESIUM SULFATE 1 GM, MVI 10 ML in NACL 0.9% 1,... IV ONE (07:00)
[2019-03-12] MEDS ORDERED: NACL 0.9% IV ONE (08:00)
[2019-03-12] MEDS ORDERED: MVI IV ONE (08:00)
[2019-03-12] MEDS ORDERED: FOLIC ACID 1 MG, MAGNESIUM SULFATE 1 GM in NS 100 ML IV ONE (08:00)
[2019-03-12] MEDS ORDERED: THIAMINE HCL IV ONE (08:00)
[2019-03-12] MEDS: KETOROLAC TROMETHAMINE 30 MG VIAL IVP SCH ×3 (11:04→23:53)
[2019-03-12] MEDS: NACL 0.9% 1,000 ML IV SCH ×2 (16:18→23:05)
[2019-03-12] MEDS ORDERED: LORazepam 1 MG TABLET PO SCH (22:45)
[2019-03-13 00:48] VITALS: BP_SYST 139
[2019-03-13] MEDS: HYDROmorphone 2 MG/ML VIAL IVP PRN ×5 (01:56→20:52)
[2019-03-13] MEDS: KETOROLAC TROMETHAMINE 30 MG VIAL IVP SCH ×3 (05:59→15:07)
[2019-03-13] MEDS: NACL 0.9% 1,000 ML IV SCH ×3 (05:59→18:55)
[2019-03-13 07:12] LABS: HEMATOCRIT 41.2 % (36-54); MEAN CORPUSCULAR HEMOGLOBIN 32 pg (27-31); MEAN CORPUSCULAR HGB CONC 34 % (32-36); MEAN CORPUSCULAR VOLUME 94 fL (79.0-98.0); PLATELET COUNT (AUTO) 189 K/uL (130-430); RED BLOOD CELL COUNT(AUTO) 4.37 MIL/uL (4.2-6.2); RED CELL DISTRIBUTION WIDTH 12.7 % (9.0-15.0)
[2019-03-13 07:21] LABS: CALCIUM 8.6 mg/dL (8.4-11.0); CREATININE 0.91 mg/dL (0.55-1.30); PHOSPHORUS 2.3 mg/dL (2.7-4.5); TOTAL BILIRUBIN 1.1 mg/dL (0.0-1.0)
[2019-03-13 07:32] LABS: WHITE BLOOD COUNT (AUTO) 14.8 K/uL (4.8-10.8)
[2019-03-13 08:40] VITALS: BP_SYST 148
[2019-03-13] MEDS: LISINOPRIL 5 MG TABLET PO SCH (08:50)
[2019-03-13] MEDS: ASPIRIN 81 MG TABLET(ECOTRIN) PO SCH (08:50)
[2019-03-13] MEDS: amLODIPine BESYLATE 10 MG TABLET PO SCH (08:50)
[2019-03-13] MEDS: FOLIC ACID 1 MG TABLET PO SCH (08:50)
[2019-03-13] MEDS: ATORVASTATIN 20 MG TABLET PO SCH (08:50)
[2019-03-13] MEDS: THIAMINE HCL 100 MG TABLET PO SCH (08:50)
[2019-03-13] MEDS: HEPARIN SODIUM,PORCINE 5000 UNITS/ML VIAL SUBCUT SCH ×2 (08:53→20:57)
[2019-03-13] MEDS ORDERED: CAPTOPRIL 25 MG TABLET PO SCH (09:00)
[2019-03-13 10:11] LABS: ATYPICAL LYMPHOCYTES % 0 % (0-0); BAND % (MANUAL) 13 % (0-6); BASOPHILS % (MANUAL) 0 % (0-2); EOSINOPHILS % (MANUAL) 0 % (0-7); LYMPHOCYTES % (MANUAL) 4 % (20-46); MONOCYTES % (MANUAL) 3 % (0-11)
[2019-03-13 11:21] VITALS: BP_SYST 142
[2019-03-13 15:10] VITALS: BP_SYST 137
[2019-03-13] MEDS ORDERED: KETOROLAC TROMETHAMINE 30 MG VIAL IVP SCH (15:23)
[2019-03-13] MEDS: KETOROLAC TROMETHAMINE 15 MG VIAL IVP SCH ×2 (18:56→23:19)
[2019-03-13 20:50] VITALS: BP_SYST 139
[2019-03-14 01:03] VITALS: BP_SYST 133
[2019-03-14] MEDS: HYDROmorphone 2 MG/ML VIAL IVP PRN (01:31)
[2019-03-14] MEDS: NACL 0.9% 1,000 ML IV SCH ×2 (01:35→07:59)
[2019-03-14] MEDS: KETOROLAC TROMETHAMINE 15 MG VIAL IVP SCH ×4 (04:17→14:04)
[2019-03-14 06:27] LABS: BASOPHILS % (AUTO) 0.2 % (0.0-2.0); EOSINOPHILS # (AUTO) 0.3 K/uL (0.0-0.4); EOSINOPHILS % (AUTO) 2.6 % (0.0-4.0); HEMATOCRIT 35.5 % (36-54); LYMPHOCYTES # (AUTO) 0.7 K/uL (1.0-5.5); LYMPHOCYTES % (AUTO) 6.8 % (20.5-51.5); MEAN CORPUSCULAR HEMOGLOBIN 32 pg (27-31); MEAN CORPUSCULAR HGB CONC 34 % (32-36); MEAN CORPUSCULAR VOLUME 95 fL (79.0-98.0); MONOCYTES # (AUTO) 0.6 K/uL (0.0-1.0); MONOCYTES % (AUTO) 5.4 % (1.7-9.3); NEUTROPHILS # (AUTO) 9.3 K/uL (1.8-7.7); PLATELET COUNT (AUTO) 125 K/uL (130-430); RED BLOOD CELL COUNT(AUTO) 3.76 MIL/uL (4.2-6.2); RED CELL DISTRIBUTION WIDTH 12.4 % (9.0-15.0)
[2019-03-14 06:51] LABS: CALCIUM 8.4 mg/dL (8.4-11.0); CREATININE 0.75 mg/dL (0.55-1.30); PHOSPHORUS 1.3 mg/dL (2.7-4.5); POTASSIUM 3.3 mmol/L (3.5-5.1)
[2019-03-14 08:00] VITALS: BP_SYST 131
[2019-03-14] MEDS: FOLIC ACID 1 MG TABLET PO SCH (08:00)
[2019-03-14] MEDS: ATORVASTATIN 20 MG TABLET PO SCH (08:00)
[2019-03-14] MEDS: ASPIRIN 81 MG TABLET(ECOTRIN) PO SCH (08:00)
[2019-03-14] MEDS: THIAMINE HCL 100 MG TABLET PO SCH (08:00)
[2019-03-14] MEDS: HEPARIN SODIUM,PORCINE 5000 UNITS/ML VIAL SUBCUT SCH (08:01)
[2019-03-14] MEDS: amLODIPine BESYLATE 10 MG TABLET PO SCH (08:01)
[2019-03-14] MEDS: LISINOPRIL 5 MG TABLET PO SCH (08:01)
[2019-03-14] MEDS ORDERED: K PHOS 30 MM in NS 250 ML IV ONE (08:30)
[2019-03-14] MEDS ORDERED: POTASSIUM CHLORIDE 20 MEQ TAB.PRT.SR PO ONE (08:45)
[2019-03-14 12:10] VITALS: BP_SYST 133
[2019-03-14] MEDS ORDERED: HYDR-4272 PO (12:10)
[2019-03-14 13:06] VITALS: BP_SYST 133
[2019-03-14 16:42] VITALS: BP_SYST 130
[2019-03-14 17:48] LABS: PHOSPHORUS 1.9 mg/dL (2.7-4.5); POTASSIUM 4.7 mmol/L (3.5-5.1)
== END 2019-03-14 18:30 | disposition home or self-care (01) | DRG 282 ==
LOC: SED 20:49 → SMU 22:38
PROVIDERS: ADMIT Family Medicine; ATTEND Family Medicine
DX: K85.20 Alcohol induced acute pancreatitis without necrosis or infection (principal); E83.39 Other disorders of phosphorus metabolism; F10.20 Alcohol dependence, uncomplicated; E78.5 Hyperlipidemia, unspecified; I10 Essential (primary) hypertension; R73.9 Hyperglycemia, unspecified; R74.0 Nonspecific elevation of levels of transaminase and lactic acid dehydrogenase [LDH]; Z79.899 Other long term (current) drug therapy; Z79.82 Long term (current) use of aspirin; Z90.49 Acquired absence of other specified parts of digestive tract
CPT/HCPCS: 36415; 80048; 80053; 80061; 81003; 82150-TC; 83036; 83690-TC; 83735-TC; 84100-TC; 84132-TC; 84484; 85007; 85025; 85027; 85379; 93005; 96361; 96374; 96375; 96376; 99285; J1170; J1644; J1885; J2060; J2270; J2405; J3411; J3475; J3490; J7030; J7050; Q9967

== ENCOUNTER 2021-01-04 12:27 | Emergency (ER) | payer MEDICAID ==
[~2021-01-04] VITALS: Ht 177.8 cm; Wt 74.8 kg
[~2021-01-04 12:27] MED LIST changes: -ASPI-1153 PO; +ASPI-1393 PO; +CAPT25TA3 PO; +HYDR-4272 PO
[2021-01-04 12:56] VITALS: BP_SYST 126
[2021-01-04 13:06] LABS: BASOPHILS # (AUTO) 0.1 K/uL (0.0-0.2); BASOPHILS % (AUTO) 0.6 % (0.0-2.0); EOSINOPHILS # (AUTO) 0.2 K/uL (0.0-0.4); EOSINOPHILS % (AUTO) 2.5 % (0.0-4.0); HEMATOCRIT 40.1 % (36-54); HEMOGLOBIN 13.5 g/dL (14.0-18.0); LYMPHOCYTES # (AUTO) 2.4 K/uL (1.0-5.5); LYMPHOCYTES % (AUTO) 26.6 % (20.5-51.5); MEAN CORPUSCULAR HEMOGLOBIN 31 pg (27-31); MEAN CORPUSCULAR HGB CONC 34 % (32-36); MEAN CORPUSCULAR VOLUME 92 fL (79.0-98.0); MONOCYTES # (AUTO) 0.5 K/uL (0.0-1.0); MONOCYTES % (AUTO) 5.7 % (1.7-9.3); NEUTROPHILS # (AUTO) 5.9 K/uL (1.8-7.7); NEUTROPHILS % (AUTO) 64.6 % (40.0-70.0); PLATELET COUNT (AUTO) 222 K/uL (130-430); RED BLOOD CELL COUNT(AUTO) 4.37 MIL/uL (4.2-6.2); RED CELL DISTRIBUTION WIDTH 12.3 % (9.0-15.0); WHITE BLOOD COUNT (AUTO) 9.1 K/uL (4.8-10.8)
[2021-01-04 13:40] LABS: ANION GAP 14 (5-15); CALCIUM 8.7 mg/dL (8.4-11.0); CHLORIDE 106 mmol/L (98-107); CREATININE 0.97 mg/dL (0.55-1.30); GLUCOSE 149 mg/dL (70-99); POTASSIUM 3.5 mmol/L (3.5-5.1); SODIUM SERUM 142 mmol/L (136-145); UREA NITROGEN, BLOOD 12 mg/dL (8-21)
[2021-01-04 13:45] LABS: GFR AFRICAN AMERICAN 105 mL/min (>90)
[2021-01-04 13:49] LABS: BARBITURATE, URINE NEGATIVE (NEG <=200); BENZODIAZEPINE, URINE NEGATIVE (NEG <=150); CANNABINOID, URINE NEGATIVE (NEG <=50); COCAINE, URINE NEGATIVE (NEG <=150); METHAMPHETAMINES SCREEN,URINE NEGATIVE (NEG <=500); OPIATE, URINE NEGATIVE (NEG <=100); PHENCYCLIDINE SCREEN,URINE NEGATIVE (NEG <=25); UR TRICYCLIC ANTIDEPRESSANTS NEGATIVE (NEG <=300); URINE AMPHETAMINE NEGATIVE (NEG <=500); URINE METHADONE NEGATIVE (NEG <=200); URINE OXYCODONE SCREEN NEGATIVE (NEG <=100); URINE PROPOXYPHENE SCREEN NEGATIVE (NEG <=300)
[2021-01-04 13:53] LABS: ALANINE AMINOTRANSFERASE 28 U/L (12-78); ALBUMIN 3.8 g/dL (3.4-4.8); ASPARTATE AMINOTRANSFERASE 27 U/L (10-37); BILIRUBIN,DIRECT 0.1 mg/dL (0.0-0.3); FREE T4 (FREE THYROXINE) 1.1 ng/dl (0.8-1.5); INR 0.9 (0.80-1.20); LIPASE 70 U/L (73-393); PROTHROMBIN TIME 9.6 SECS (9.5-12.5); THYROID STIMULATING HORMONE 0.89 uIu/mL (0.36-3.74); TOTAL BILIRUBIN 0.3 mg/dL (0.0-1.0)
[2021-01-04 13:57] LABS: ACETAMINOPHEN < 1 ug/mL (1-30)
[2021-01-04 13:59] LABS: ALCOHOL, BLOOD 503 mg/dL (<10)
[2021-01-04 22:21] VITALS: BP_SYST 115
== END 2021-01-04 20:50 | disposition home or self-care (01) ==
LOC: SED 12:27
DX: F10.129 Alcohol abuse with intoxication, unspecified (principal); I10 Essential (primary) hypertension; Z79.82 Long term (current) use of aspirin; Z79.899 Other long term (current) drug therapy; Y90.8 Blood alcohol level of 240 mg/100 ml or more
CPT/HCPCS: 36415; 70450; 76376; 80048; 80076; 80307; 82550; 82962; 83690; 83880; 84439; 84443; 84484; 85025; 85610; 93005; 99285; G0480; G0481; G0482

== ENCOUNTER 2021-02-05 15:47 | Emergency (ER) | payer MEDICAID ==
[~2021-02-05] VITALS: Ht 177.8 cm; Wt 77.6 kg
[2021-02-05 15:56] VITALS: BP_SYST 123
[2021-02-05] MEDS ORDERED: MORPHINE 4 MG INJ. 4 MG/ML VIAL IVP ONE (16:30)
[2021-02-05] MEDS ORDERED: ONDANSETRON HCL 4 MG/2 ML VIAL IVP ONE (16:30)
[2021-02-05 16:53] LABS: BASOPHILS % (AUTO) 0.3 % (0.0-2.0); EOSINOPHILS # (AUTO) 0.2 K/uL (0.0-0.4); EOSINOPHILS % (AUTO) 2.3 % (0.0-4.0); HEMATOCRIT 40.1 % (36-54); HEMOGLOBIN 13.2 g/dL (14.0-18.0); LYMPHOCYTES # (AUTO) 2.3 K/uL (1.0-5.5); LYMPHOCYTES % (AUTO) 28.4 % (20.5-51.5); MEAN CORPUSCULAR HEMOGLOBIN 31 pg (27-31); MEAN CORPUSCULAR HGB CONC 33 % (32-36); MEAN CORPUSCULAR VOLUME 93 fL (79.0-98.0); MONOCYTES # (AUTO) 0.4 K/uL (0.0-1.0); MONOCYTES % (AUTO) 4.7 % (1.7-9.3); NEUTROPHILS # (AUTO) 5.2 K/uL (1.8-7.7); NEUTROPHILS % (AUTO) 64.3 % (40.0-70.0); PLATELET COUNT (AUTO) 245 K/uL (130-430); RED BLOOD CELL COUNT(AUTO) 4.31 MIL/uL (4.2-6.2); RED CELL DISTRIBUTION WIDTH 12.8 % (9.0-15.0); WHITE BLOOD COUNT (AUTO) 8.1 K/uL (4.8-10.8)
[2021-02-05 17:25] LABS: CALCIUM 9.3 mg/dL (8.4-11.0); CREATININE 0.94 mg/dL (0.55-1.30); POTASSIUM 3.6 mmol/L (3.5-5.1)
[2021-02-05 17:36] LABS: ALBUMIN 3.8 g/dL (3.4-4.8); TOTAL BILIRUBIN 0.2 mg/dL (0.0-1.0)
[2021-02-05 17:52] LABS: INR 0.9 (0.80-1.20); PROTHROMBIN TIME 9.6 SECS (9.5-12.5)
[2021-02-05 19:08] LABS: BILIRUBIN,URINE NEGATIVE (NEGATIVE); BLOOD, URINE NEGATIVE (NEGATIVE); CLARITY/URINE CLEAR (CLEAR); COLOR,URINE YELLOW (YELLOW); GLUCOSE,URINE NEGATIVE (NEGATIVE); KETONES,URINE NEGATIVE (NEGATIVE); LEUKOCYTE ESTERASE ,URINE NEGATIVE (NEGATIVE); NITRITE, URINE NEGATIVE (NEGATIVE); PROTEIN URINE NEGATIVE (NEGATIVE); UROBILINOGEN,URINE 0.2 (0.2-1.0)
[2021-02-05] MEDS ORDERED: IBUP-1969 PO (19:15)
[2021-02-05] MEDS ORDERED: ACET325T PO (19:15)
[2021-02-05] MEDS ORDERED: CYCL-10 PO (19:22)
[2021-02-05 19:58] VITALS: BP_SYST 120
== END 2021-02-05 19:58 | disposition home or self-care (01) ==
LOC: SED 15:47
DX: M54.5 Low back pain (principal); I10 Essential (primary) hypertension; E11.9 Type 2 diabetes mellitus without complications; Z79.899 Other long term (current) drug therapy
CPT/HCPCS: 36415; 74176; 76376; 80053; 81003; 83690; 85025; 85610; 85730; 96374; 96375; 99284; J2270; J2405

== ENCOUNTER 2021-08-20 16:45 | Emergency (ER) | payer MEDICAID, SELFPAY ==
[~2021-08-20] VITALS: Ht 175.3 cm; Wt 83.9 kg
[~2021-08-20 16:45] MED LIST changes: +ACET325T PO; +CYCL10TA24 PO; +IBUP-1969 PO
[2021-08-20 16:55] VITALS: BP_SYST 148
--- NOTE | 2021-08-20 17:06 | NUR ---
ER IN TRIAGE examining patient.
[2021-08-20] MEDS ORDERED: MORPHINE 4 MG INJ. 4 MG/ML VIAL IVP ONE (17:15)
[2021-08-20 17:36] LABS: CREATININE 0.74 mg/dL (0.55-1.30)
--- NOTE | 2021-08-20 17:45 | NUR ---
Patient to ER bed 4 to gown for evaluation. Side rails up. Report given to AZAR ANTONIO.
[2021-08-20 17:50] LABS: BASOPHILS % (AUTO) 0.5 % (0.0-2.0); EOSINOPHILS # (AUTO) 0.1 K/uL (0.0-0.4); EOSINOPHILS % (AUTO) 1.3 % (0.0-4.0); HEMATOCRIT 42.4 % (36-54); LYMPHOCYTES # (AUTO) 2.2 K/uL (1.0-5.5); LYMPHOCYTES % (AUTO) 29.5 % (20.5-51.5); MEAN CORPUSCULAR HEMOGLOBIN 31 pg (27-31); MEAN CORPUSCULAR HGB CONC 33 % (32-36); MEAN CORPUSCULAR VOLUME 92 fL (79.0-98.0); MONOCYTES # (AUTO) 0.5 K/uL (0.0-1.0); MONOCYTES % (AUTO) 6.2 % (1.7-9.3); NEUTROPHILS # (AUTO) 4.7 K/uL (1.8-7.7); NEUTROPHILS % (AUTO) 62.5 % (40.0-70.0); PLATELET COUNT (AUTO) 245 K/uL (130-430); RED BLOOD CELL COUNT(AUTO) 4.59 MIL/uL (4.2-6.2); RED CELL DISTRIBUTION WIDTH 12.5 % (9.0-15.0); WHITE BLOOD COUNT (AUTO) 7.5 K/uL (4.8-10.8)
[2021-08-20 17:53] LABS: ALBUMIN 3.9 g/dL (3.4-4.8); TOTAL BILIRUBIN 0.3 mg/dL (0.0-1.0)
--- NOTE | 2021-08-20 18:00 | NUR ---
PATIENT COMPLAINING OF LEFT SIDED CHEST PAIN NO RADIATING SHARP AND PRESSURE LIKE X 6 HOURS PRIOR TO ARRIVAL. PATIENT REPORTS HAVING WORSENING PAIN WHEN COUGHING. PATIENT UNABLE TO LAY IN BED. PAIN 10/10. YELLING AND SCREAMING. VSS
[2021-08-20] MEDS ORDERED: KETOROLAC TROMETHAMINE 30 MG VIAL IVP ONE (18:45)
[2021-08-20] MEDS ORDERED: HYDROmorphone 1 MG/ML INJ. CARTRIDGE ONE (19:26)
--- NOTE | 2021-08-20 19:29 | NUR ---
patient yelling and screaming still complaining of 10/10 pain to left chest.
[2021-08-20] MEDS ORDERED: HYDROmorphone 1 MG/ML INJ. CARTRIDGE IVP ONE (19:30)
--- NOTE | 2021-08-20 19:49 | NUR ---
cta consent signed by with patient at bedside.
--- NOTE | 2021-08-20 20:22 | NUR ---
PATIENT OFF UNIT TO CT SCAN
[2021-08-20] MEDS ORDERED: AZIT500T10 PO (20:51)
[2021-08-20 21:28] VITALS: BP_SYST 141
--- NOTE | 2021-08-20 21:28 | NUR ---
Patient given written and verbal discharge instructions and verbalizes understanding. ER MD discussed with patient the results and treatment provided. Patient in stable condition. ID arm band removed. IV catheter removed intact and dressing applied, no active bleeding. Rx of azithromycin given. Patient educated on pain management and to follow up with PMD. Pain Scale 3. Opportunity for questions provided and answered. Medication side effect fact sheet provided.
== END 2021-08-20 21:28 | disposition home or self-care (01) ==
LOC: SED 16:45
DX: R07.89 Other chest pain (principal); I10 Essential (primary) hypertension; J45.909 Unspecified asthma, uncomplicated; E11.9 Type 2 diabetes mellitus without complications; J44.9 Chronic obstructive pulmonary disease, unspecified; F03.90 Unspecified dementia, unspecified severity, without behavioral disturbance, psychotic disturbance, mood disturbance, and anxiety; E78.5 Hyperlipidemia, unspecified; K21.9 Gastro-esophageal reflux disease without esophagitis; R05.9 Cough, unspecified; R06.02 Shortness of breath
CPT/HCPCS: 36415; 71045; 71275; 76376; 80053; 83690; 84484; 85025; 85379; 93005; 96374; 96375; 99285; J1170; J1885; J2270; Q9967

== ENCOUNTER 2021-11-17 21:44 | Emergency (ER) | payer MEDICAID ==
[~2021-11-17] VITALS: Ht 177.8 cm; Wt 87.1 kg
[~2021-11-17 21:44] MED LIST changes: +AZIT500T10 PO
[2021-11-17 21:56] VITALS: BP_SYST 155
--- NOTE | 2021-11-17 22:03 | NUR ---
Patient triaged and placed in waiting room. VS checked and patient appears in no acute distress at this time. Accompanied by family, awaiting available bed, and MD notified of need for MSE.
--- NOTE | 2021-11-17 23:51 | NUR ---
Patient to ER bed 07 to gown for evaluation. Side rails up. Report given to MARISELA MCLEOD
--- NOTE | 2021-11-17 23:56 | NUR ---
Patient ambulatory to bed 7 for evaluation and treatment
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
[2021-11-18] MEDS ORDERED: HYDR-3917 PO (00:12)
[2021-11-18] MEDS ORDERED: HYDROcodone/ACETAMIN 5-325 MG TAB (NORCO/ VICODIN) PO ONE (00:30)
[2021-11-18 00:44] VITALS: BP_SYST 138
--- NOTE | 2021-11-18 00:57 | NUR ---
ORTHO SHOE APPLIED TO LEFT FOOT
--- NOTE | 2021-11-18 01:11 | NUR ---
PT PROVIDED WITH CRUTCHES AND INSTRUCTIONS FOR USAGE WITH [facility] INSTRUCTIONS. PT ENOURAGED TO FOLLOW UP WITH ORTHOPEDIST WITHIN ONE WEEK AND PROVIDED WITH NEW PRESCRIPTION OFR PAIN MEDICATION. UNDERSTANDING VERBALIZED. PT ACCOMPANIED BY .
== END 2021-11-18 01:15 | disposition home or self-care (01) ==
LOC: SED 21:44
DX: S92.222A Displaced fracture of lateral cuneiform of left foot, initial encounter for closed fracture (principal); E11.9 Type 2 diabetes mellitus without complications; I10 Essential (primary) hypertension; K35.32 Acute appendicitis with perforation, localized peritonitis, and gangrene, without abscess; X58.XXXA Exposure to other specified factors, initial encounter; Y93.89 Activity, other specified; Y92.89 Other specified places as the place of occurrence of the external cause; Y99.8 Other external cause status
CPT/HCPCS: 99283

== ENCOUNTER 2022-01-04 16:06 | Emergency (ER) | payer MEDICAID ==
[~2022-01-04] VITALS: Ht 175.3 cm; Wt 88.9 kg
[2022-01-04 16:06] VITALS: BP_SYST 146
[~2022-01-04 16:06] MED LIST changes: +HYDR-3917 PO
--- NOTE | 2022-01-04 16:07 | NUR ---
BROUGHT TO AMBULANCE BAY AND TRIAGED. WILL ASSUME CARE.
--- NOTE | 2022-01-04 16:15 | NUR ---
DR THORNTON OUT TO AMBULANCE BAY TO EVALUATE PT.
[2022-01-04] MEDS ORDERED: PRED50TA PO (17:14)
[2022-01-04] MEDS ORDERED: PHEDM120 PO (17:14)
[2022-01-04] MEDS ORDERED: AZIT-93 PO (17:14)
[2022-01-04 17:20] VITALS: BP_SYST 146
--- NOTE | 2022-01-04 17:20 | NUR ---
Patient given written and verbal discharge instructions and verbalizes understanding. ER MD discussed with patient the results and treatment provided. Patient in stable condition. ID arm band removed. Rx of AZITHROMYCIN, PHENERGAN-DM AND PREDNISONE given. Patient educated on pain management and to follow up with PMD. Pain Scale 0/10. Opportunity for questions provided and answered. Medication side effect fact sheet provided.
== END 2022-01-04 17:20 | disposition home or self-care (01) ==
LOC: SED 16:06
DX: J03.90 Acute tonsillitis, unspecified (principal); J40 Bronchitis, not specified as acute or chronic; E11.9 Type 2 diabetes mellitus without complications; I10 Essential (primary) hypertension; Z79.899 Other long term (current) drug therapy; Z20.822 Contact with and (suspected) exposure to COVID-19
CPT/HCPCS: 36415; 71045; 99284

== ENCOUNTER 2022-02-23 21:45 | Emergency (ER) | payer MEDICAID ==
[~2022-02-23] VITALS: Ht 177.8 cm; Wt 84.4 kg
[~2022-02-23 21:45] MED LIST changes: +AZIT-93 PO; +PHEDM120 PO; +PRED50TA PO
[2022-02-23 22:11] VITALS: BP_SYST 146
[2022-02-24] MEDS ORDERED: traMADol HCL HCL 50 MG TABLET (ULTRAM) PO ONE (00:30)
[2022-02-24] MEDS ORDERED: IBUP-1969 PO (01:12)
[2022-02-24] MEDS ORDERED: TRAM50TA2 PO (01:12)
[2022-02-24] MEDS ORDERED: IBUP100O22 PO ×2 (01:12)
[2022-02-24 01:55] VITALS: BP_SYST 138
== END 2022-02-24 01:55 | disposition home or self-care (01) ==
LOC: SED 21:45
DX: S93.401A Sprain of unspecified ligament of right ankle, initial encounter (principal); E11.9 Type 2 diabetes mellitus without complications; I10 Essential (primary) hypertension; Z79.899 Other long term (current) drug therapy; W21.06XA Struck by volleyball, initial encounter; Y93.68 Activity, volleyball (beach) (court); Y92.89 Other specified places as the place of occurrence of the external cause; Y99.8 Other external cause status
CPT/HCPCS: 99284

== ENCOUNTER 2022-05-13 02:44 | Emergency (ER) | payer MEDICAID ==
[~2022-05-13] VITALS: Ht 177.8 cm; Wt 86.2 kg
[~2022-05-13 02:44] MED LIST changes: +TRAM50TA2 PO
[2022-05-13 03:05] VITALS: BP_SYST 147
--- NOTE | 2022-05-13 03:12 | NUR ---
PT HERE C/O MID ABDOMINAL PAIN AND BACK PAIN. PT STATED THAT HE HAS THE SAME SYMPTOMS WHEN HE WAS DX WITH PANCREATITIS 30 YRS AGO. PT DENIES N/V/D, DENIES DYSURIA. PMH:PANCREATITIS,HTN,DM,HYPERLIPIDEMIA PT AAOX4, NO SOB NOTED, PT AMBULATED WITH STAEDY GAIT TO ROOM 3. REPORT GIVEN TO ARMAAN ANTONIO
--- NOTE | 2022-05-13 03:17 | NUR ---
PT IS AA&OX4. AFEBRILE. NAD, C/O 04/12 R & L UPPER ABDOMINAL PAIN THAT RADIATES TO THE BACK. NO N/V BUT PT STATED " I BURP ALOT NOW & I CAN TASTE SOUR LIKE ACID LIKE IT'S REGURGITATING". PER PT, HE HAS HX OF HTN, HLD & DM. NKA. AMBULATORY W/ STEADY GAIT. SAFE & HAZARD FREE ENVIRONMENT PROVIDED.
--- NOTE | 2022-05-13 03:20 | NUR ---
ER Dr. SHOOK at bedside examining patient.
[2022-05-13] MEDS ORDERED: NACL 0.9% 1,000 ML IV ONE (03:30)
[2022-05-13] MEDS ORDERED: MORPHINE 4 MG INJ. 4 MG/ML VIAL IVP ONE (03:30)
[2022-05-13] MEDS ORDERED: ONDANSETRON HCL 4 MG/2 ML VIAL IVP ONE (03:30)
[2022-05-13] MEDS ORDERED: PANTOPRAZOLE SODIUM 40 MG/VIAL (PROTONIX) IVP ONE (03:30)
[2022-05-13 03:43] LABS: BILIRUBIN,URINE NEGATIVE (NEGATIVE); BLOOD, URINE NEGATIVE (NEGATIVE); CLARITY/URINE CLEAR (CLEAR); COLOR,URINE YELLOW (YELLOW); GLUCOSE,URINE 1+ (NEGATIVE); KETONES,URINE NEGATIVE (NEGATIVE); LEUKOCYTE ESTERASE ,URINE NEGATIVE (NEGATIVE); NITRITE, URINE NEGATIVE (NEGATIVE); PROTEIN URINE NEGATIVE (NEGATIVE); UROBILINOGEN,URINE 0.2 (0.2-1.0)
[2022-05-13 04:54] LABS: CALCIUM 9.1 mg/dL (8.4-11.0); CREATININE 1.09 mg/dL (0.55-1.30); POTASSIUM 3.5 mmol/L (3.5-5.1)
[2022-05-13 04:55] LABS: BASOPHILS % (AUTO) 0.4 % (0.0-2.0); EOSINOPHILS # (AUTO) 0.1 K/uL (0.0-0.4); EOSINOPHILS % (AUTO) 1.9 % (0.0-4.0); HEMATOCRIT 40.3 % (36-54); HEMOGLOBIN 13.8 g/dL (14.0-18.0); LYMPHOCYTES # (AUTO) 1.8 K/uL (1.0-5.5); LYMPHOCYTES % (AUTO) 26.7 % (20.5-51.5); MEAN CORPUSCULAR HEMOGLOBIN 31 pg (27-31); MEAN CORPUSCULAR HGB CONC 34 % (32-36); MEAN CORPUSCULAR VOLUME 90 fL (79.0-98.0); MONOCYTES # (AUTO) 0.6 K/uL (0.0-1.0); MONOCYTES % (AUTO) 8.8 % (1.7-9.3); NEUTROPHILS # (AUTO) 4.2 K/uL (1.8-7.7); NEUTROPHILS % (AUTO) 62.2 % (40.0-70.0); PLATELET COUNT (AUTO) 226 K/uL (130-430); RED CELL DISTRIBUTION WIDTH 13.4 % (9.0-15.0); WHITE BLOOD COUNT (AUTO) 6.8 K/uL (4.8-10.8)
[2022-05-13 04:59] LABS: ALBUMIN 3.7 g/dL (3.4-4.8); TOTAL BILIRUBIN 0.6 mg/dL (0.0-1.0)
[2022-05-13] MEDS ORDERED: FAMO40TA71 PO (05:51)
[2022-05-13 06:02] VITALS: BP_SYST 129
--- NOTE | 2022-05-13 06:04 | NUR ---
Patient given written and verbal discharge instructions and verbalizes understanding. ER MD DR. SHOOK discussed with patient the results and treatment provided. Patient in stable condition. ID arm band removed. IV catheter removed intact and dressing applied, no active bleeding. Rx of PEPCID given. Patient educated on pain management and to follow up with PMD. Pain Scale 0/10]. Opportunity for questions provided and answered. Medication side effect fact sheet provided. AMBULATORY W/ STEADY GAIT. LEFT IN STABLE CONDITION.
== END 2022-05-13 06:02 | disposition home or self-care (01) ==
LOC: SED 02:44
DX: K29.70 Gastritis, unspecified, without bleeding (principal); R10.84 Generalized abdominal pain; R11.2 Nausea with vomiting, unspecified; E11.9 Type 2 diabetes mellitus without complications; I10 Essential (primary) hypertension; Z79.899 Other long term (current) drug therapy
CPT/HCPCS: 99284; 74176; 96374; 96375; 96361; 80053; 83690; 85025; 36415; 76376; 81003; J2405; C9113; J2270; J7030

== ENCOUNTER 2022-08-31 12:04 | Inpatient (IN) | payer MEDICAID ==
[~2022-08-31] VITALS: Ht 177.8 cm; Wt 84.4 kg
[~2022-08-31 12:04] MED LIST changes: -ACET325T PO; -AMLO10TA88 PO; -ASPI-1393 PO; +ATOR40TA68 PO; -AZIT-93 PO; -AZIT500T10 PO; -CAPT25TA3 PO; +CHLO25CA10 PO; -CYCL10TA24 PO; +GLIP5TAB13 PO; -HYDR-3917 PO; -HYDR-4272 PO; -IBUP-1969 PO; -LIP40 PO; +METF-381 PO; +NOR10 PO; -PHEDM120 PO; -PRED50TA PO; -TRAM50TA2 PO
[2022-08-31 12:16] VITALS: BP_SYST 186
[2022-08-31 13:00] LABS: BASOPHILS % (AUTO) 0.2 % (0.0-2.0); EOSINOPHILS % (AUTO) 0.4 % (0.0-4.0); HEMATOCRIT 43.4 % (36-54); HEMOGLOBIN 14.5 g/dL (14.0-18.0); LYMPHOCYTES # (AUTO) 0.9 K/uL (1.0-5.5); MEAN CORPUSCULAR HEMOGLOBIN 31 pg (27-31); MEAN CORPUSCULAR HGB CONC 33 % (32-36); MEAN CORPUSCULAR VOLUME 92 fL (79.0-98.0); MONOCYTES # (AUTO) 0.4 K/uL (0.0-1.0); MONOCYTES % (AUTO) 4.6 % (1.7-9.3); NEUTROPHILS # (AUTO) 7.2 K/uL (1.8-7.7); NEUTROPHILS % (AUTO) 83.8 % (40.0-70.0); PLATELET COUNT (AUTO) 232 K/uL (130-430); RED BLOOD CELL COUNT(AUTO) 4.71 MIL/uL (4.2-6.2); RED CELL DISTRIBUTION WIDTH 13.1 % (9.0-15.0); WHITE BLOOD COUNT (AUTO) 8.6 K/uL (4.8-10.8)
[2022-08-31 13:04] LABS: CALCIUM 9.5 mg/dL (8.4-11.0); CREATININE 0.9 mg/dL (0.55-1.30)
[2022-08-31 13:14] LABS: TOTAL BILIRUBIN 0.9 mg/dL (0.0-1.0)
[2022-08-31] MEDS ORDERED: ONDANSETRON HCL 4 MG/2 ML VIAL IVP ONE ×3 (13:45→20:15)
[2022-08-31] MEDS ORDERED: NACL 0.9% 1,000 ML IV ONE (13:45)
[2022-08-31] MEDS ORDERED: MORPHINE 4 MG INJ. 4 MG/ML VIAL IVP ONE (14:00)
[2022-08-31] MEDS ORDERED: fentaNYL CITRATE/PF 100 MCG/2 ML AMP IVP ONE (16:00)
[2022-08-31] MEDS: MORPHINE 2 MG/ML INJ. SYRINGE IVP PRN (20:15)
[2022-08-31] MEDS: D5/0.45 NS 1,000 ML IV SCH (21:40)
[2022-08-31] MEDS ORDERED: SODIUM POLYSTYRENE SULFONATE 15 GM/60 ML UDBTL PO ONE (22:00)
[2022-08-31 22:09] VITALS: BP_SYST 156
[2022-08-31] MEDS: PANTOPRAZOLE SODIUM 40 MG/VIAL (PROTONIX) IVP SCH (22:43)
[2022-08-31] MEDS: MORPHINE 4 MG INJ. 4 MG/ML VIAL IVP PRN (22:44)
[2022-08-31] MEDS: INSULIN REGULAR, HUMAN 100 UNITS/ML, 3 ML VIAL (humuLIN R) SUBCUT PRN (23:00)
[2022-09-01] VITALS (7 sets, daily range): BP systolic 123–166
[2022-09-01] MEDS: MORPHINE 2 MG/ML INJ. SYRINGE IVP PRN ×2 (01:37→06:41)
[2022-09-01] MEDS: MORPHINE 4 MG INJ. 4 MG/ML VIAL IVP PRN ×5 (03:33→21:42)
[2022-09-01] MEDS: D5/0.45 NS 1,000 ML IV SCH ×2 (06:04→17:33)
[2022-09-01] MEDS: INSULIN REGULAR, HUMAN 100 UNITS/ML, 3 ML VIAL (humuLIN R) SUBCUT PRN ×3 (06:08→17:42)
[2022-09-01] MEDS: PANTOPRAZOLE SODIUM 40 MG/VIAL (PROTONIX) IVP SCH (08:27)
[2022-09-01] MEDS ORDERED: HYDROcodone/ACETAMIN 10-325 MG TAB PO PRN (09:45)
[2022-09-01] MEDS ORDERED: NALOXONE HCL 0.4 MG/ML AMP (NARCAN) IVP PRN ×2 (09:45)
[2022-09-01] MEDS ORDERED: ACETAMINOPHEN 325 MG TABLET PO PRN (09:45)
[2022-09-01] MEDS ORDERED: LORazepam 2 MG/ML VIAL IVP PRN (09:45)
[2022-09-01] MEDS ORDERED: amLODIPine BESYLATE 10 MG TABLET PO ONE (10:00)
[2022-09-01 10:16] LABS: BASOPHILS % (AUTO) 0.1 % (0.0-2.0); EOSINOPHILS # (AUTO) 0.1 K/uL (0.0-0.4); EOSINOPHILS % (AUTO) 1.1 % (0.0-4.0); HEMATOCRIT 41.4 % (36-54); HEMOGLOBIN 14.2 g/dL (14.0-18.0); LYMPHOCYTES # (AUTO) 0.8 K/uL (1.0-5.5); LYMPHOCYTES % (AUTO) 11.4 % (20.5-51.5); MEAN CORPUSCULAR HEMOGLOBIN 31 pg (27-31); MEAN CORPUSCULAR HGB CONC 34 % (32-36); MEAN CORPUSCULAR VOLUME 89 fL (79.0-98.0); MONOCYTES # (AUTO) 0.4 K/uL (0.0-1.0); MONOCYTES % (AUTO) 6.1 % (1.7-9.3); NEUTROPHILS % (AUTO) 81.3 % (40.0-70.0); PLATELET COUNT (AUTO) 211 K/uL (130-430); RED BLOOD CELL COUNT(AUTO) 4.63 MIL/uL (4.2-6.2); RED CELL DISTRIBUTION WIDTH 12.9 % (9.0-15.0); WHITE BLOOD COUNT (AUTO) 7.3 K/uL (4.8-10.8)
[2022-09-01 10:43] LABS: ALBUMIN 3.5 g/dL (3.4-4.8); CALCIUM 8.8 mg/dL (8.4-11.0); CREATININE 0.82 mg/dL (0.55-1.30); TOTAL BILIRUBIN 0.7 mg/dL (0.0-1.0)
[2022-09-01] MEDS: metFORMIN HCL 500 MG TABLET PO SCH (17:32)
[2022-09-01] MEDS: chlordiazePOXIDE HCL 25 MG CAPSULE PO SCH ×2 (17:32→21:38)
[2022-09-01] MEDS: ATORVASTATIN 20 MG TABLET PO SCH (21:37)
[2022-09-02 00:06] VITALS: BP_SYST 142
[2022-09-02] MEDS: INSULIN REGULAR, HUMAN 100 UNITS/ML, 3 ML VIAL (humuLIN R) SUBCUT PRN ×4 (00:30→17:24)
[2022-09-02] MEDS: MORPHINE 4 MG INJ. 4 MG/ML VIAL IVP PRN ×6 (01:50→22:23)
[2022-09-02] MEDS: D5/0.45 NS 1,000 ML IV SCH ×3 (01:52→20:20)
[2022-09-02] MEDS: ONDANSETRON HCL 4 MG/2 ML VIAL IVP PRN ×2 (06:17→17:27)
[2022-09-02 06:28] LABS: BASOPHILS % (AUTO) 0.4 % (0.0-2.0); EOSINOPHILS # (AUTO) 0.2 K/uL (0.0-0.4); EOSINOPHILS % (AUTO) 3.8 % (0.0-4.0); HEMATOCRIT 43.8 % (36-54); HEMOGLOBIN 15.3 g/dL (14.0-18.0); LYMPHOCYTES # (AUTO) 1.6 K/uL (1.0-5.5); LYMPHOCYTES % (AUTO) 24.5 % (20.5-51.5); MEAN CORPUSCULAR HEMOGLOBIN 31 pg (27-31); MEAN CORPUSCULAR HGB CONC 35 % (32-36); MEAN CORPUSCULAR VOLUME 89 fL (79.0-98.0); MONOCYTES # (AUTO) 0.4 K/uL (0.0-1.0); MONOCYTES % (AUTO) 5.5 % (1.7-9.3); NEUTROPHILS # (AUTO) 4.2 K/uL (1.8-7.7); NEUTROPHILS % (AUTO) 65.8 % (40.0-70.0); PLATELET COUNT (AUTO) 237 K/uL (130-430); RED BLOOD CELL COUNT(AUTO) 4.91 MIL/uL (4.2-6.2); RED CELL DISTRIBUTION WIDTH 13.3 % (9.0-15.0); WHITE BLOOD COUNT (AUTO) 6.4 K/uL (4.8-10.8)
[2022-09-02 06:57] LABS: CREATININE 0.67 mg/dL (0.55-1.30)
[2022-09-02 08:00] VITALS: BP_SYST 148
[2022-09-02] MEDS ORDERED: amLODIPine BESYLATE 10 MG TABLET PO SCH (09:00)
[2022-09-02] MEDS: PANTOPRAZOLE SODIUM 40 MG/VIAL (PROTONIX) IVP SCH (09:37)
[2022-09-02] MEDS: metFORMIN HCL 500 MG TABLET PO SCH ×2 (09:37→17:25)
[2022-09-02] MEDS: chlordiazePOXIDE HCL 25 MG CAPSULE PO SCH ×3 (09:38→20:15)
[2022-09-02 11:44] VITALS: BP_SYST 136
[2022-09-02 15:26] VITALS: BP_SYST 136
[2022-09-02 19:55] VITALS: BP_SYST 160
[2022-09-02] MEDS: ATORVASTATIN 20 MG TABLET PO SCH (20:15)
[2022-09-02 22:00] VITALS: BP_SYST 160
[2022-09-03] VITALS (8 sets, daily range): BP systolic 138–168
[2022-09-03] MEDS: INSULIN REGULAR, HUMAN 100 UNITS/ML, 3 ML VIAL (humuLIN R) SUBCUT PRN ×3 (00:20→11:33)
[2022-09-03] MEDS: MORPHINE 4 MG INJ. 4 MG/ML VIAL IVP PRN ×6 (02:24→23:46)
[2022-09-03] MEDS: D5/0.45 NS 1,000 ML IV SCH ×2 (06:19→17:05)
[2022-09-03 06:35] LABS: BASOPHILS % (AUTO) 0.3 % (0.0-2.0); EOSINOPHILS # (AUTO) 0.1 K/uL (0.0-0.4); EOSINOPHILS % (AUTO) 2.3 % (0.0-4.0); HEMATOCRIT 41.7 % (36-54); HEMOGLOBIN 14.4 g/dL (14.0-18.0); LYMPHOCYTES # (AUTO) 1.1 K/uL (1.0-5.5); LYMPHOCYTES % (AUTO) 17.2 % (20.5-51.5); MEAN CORPUSCULAR HEMOGLOBIN 32 pg (27-31); MEAN CORPUSCULAR HGB CONC 34 % (32-36); MEAN CORPUSCULAR VOLUME 91 fL (79.0-98.0); MONOCYTES # (AUTO) 0.5 K/uL (0.0-1.0); MONOCYTES % (AUTO) 7.4 % (1.7-9.3); NEUTROPHILS # (AUTO) 4.7 K/uL (1.8-7.7); NEUTROPHILS % (AUTO) 72.8 % (40.0-70.0); PLATELET COUNT (AUTO) 212 K/uL (130-430); RED BLOOD CELL COUNT(AUTO) 4.56 MIL/uL (4.2-6.2); WHITE BLOOD COUNT (AUTO) 6.4 K/uL (4.8-10.8)
[2022-09-03 07:11] LABS: ALBUMIN 3.5 g/dL (3.4-4.8); CALCIUM 9.1 mg/dL (8.4-11.0); CREATININE 0.67 mg/dL (0.55-1.30); TOTAL BILIRUBIN 0.5 mg/dL (0.0-1.0)
[2022-09-03] MEDS: metFORMIN HCL 500 MG TABLET PO SCH ×2 (08:47→17:05)
[2022-09-03] MEDS: lisinopriL 5 MG TABLET PO SCH (08:47)
[2022-09-03] MEDS: chlordiazePOXIDE HCL 25 MG CAPSULE PO SCH ×3 (08:47→20:08)
[2022-09-03] MEDS: PANTOPRAZOLE SODIUM 40 MG/VIAL (PROTONIX) IVP SCH (08:47)
[2022-09-03] MEDS: ONDANSETRON HCL 4 MG/2 ML VIAL IVP PRN (14:37)
[2022-09-03] MEDS: ATORVASTATIN 20 MG TABLET PO SCH (20:08)
[2022-09-04] MEDS: INSULIN REGULAR, HUMAN 100 UNITS/ML, 3 ML VIAL (humuLIN R) SUBCUT PRN ×3 (00:03→13:10)
[2022-09-04 00:41] VITALS: BP_SYST 160
[2022-09-04] MEDS: D5/0.45 NS 1,000 ML IV SCH ×2 (03:40→12:30)
[2022-09-04] MEDS: MORPHINE 4 MG INJ. 4 MG/ML VIAL IVP PRN (03:56)
[2022-09-04 06:27] LABS: BASOPHILS % (AUTO) 0.3 % (0.0-2.0); EOSINOPHILS # (AUTO) 0.1 K/uL (0.0-0.4); EOSINOPHILS % (AUTO) 2.2 % (0.0-4.0); HEMATOCRIT 39.1 % (36-54); HEMOGLOBIN 13.1 g/dL (14.0-18.0); LYMPHOCYTES # (AUTO) 1.2 K/uL (1.0-5.5); MEAN CORPUSCULAR HEMOGLOBIN 31 pg (27-31); MEAN CORPUSCULAR HGB CONC 34 % (32-36); MEAN CORPUSCULAR VOLUME 92 fL (79.0-98.0); MONOCYTES # (AUTO) 0.5 K/uL (0.0-1.0); MONOCYTES % (AUTO) 7.6 % (1.7-9.3); NEUTROPHILS # (AUTO) 4.7 K/uL (1.8-7.7); NEUTROPHILS % (AUTO) 71.9 % (40.0-70.0); PLATELET COUNT (AUTO) 211 K/uL (130-430); RED BLOOD CELL COUNT(AUTO) 4.26 MIL/uL (4.2-6.2); RED CELL DISTRIBUTION WIDTH 12.9 % (9.0-15.0); WHITE BLOOD COUNT (AUTO) 6.5 K/uL (4.8-10.8)
[2022-09-04 07:04] LABS: CALCIUM 8.8 mg/dL (8.4-11.0); CREATININE 0.65 mg/dL (0.55-1.30)
[2022-09-04 08:57] VITALS: BP_SYST 143
[2022-09-04] MEDS: PANTOPRAZOLE SODIUM 40 MG/VIAL (PROTONIX) IVP SCH (10:27)
[2022-09-04] MEDS: chlordiazePOXIDE HCL 25 MG CAPSULE PO SCH ×2 (10:27→16:01)
[2022-09-04] MEDS: lisinopriL 5 MG TABLET PO SCH (10:27)
[2022-09-04] MEDS: HYDROcodone/ACETAMIN 5-325 MG TAB (NORCO/ VICODIN) PO PRN ×2 (10:38→17:02)
[2022-09-04 11:29] VITALS: BP_SYST 148
[2022-09-04] MEDS ORDERED: HYDR-3917 PO (12:27)
[2022-09-04] MEDS ORDERED: POTASSIUM CHLORIDE 20 MEQ TAB.PRT.SR PO ONE (12:45)
[2022-09-04 15:29] VITALS: BP_SYST 143
[2022-09-04 17:08] VITALS: BP_SYST 147
== END 2022-09-04 17:45 | disposition home or self-care (01) | DRG 282 ==
LOC: SED 12:04 → SMU 18:24 → STU 22:34 → SMU 09-04 04:52
PROVIDERS: ADMIT Preventive Medicine Preventive Medicine/Occupational Environmental Medicine; ATTEND Preventive Medicine Preventive Medicine/Occupational Environmental Medicine
DX: K85.20 Alcohol induced acute pancreatitis without necrosis or infection (principal); R65.11 Systemic inflammatory response syndrome (SIRS) of non-infectious origin with acute organ dysfunction; E87.1 Hypo-osmolality and hyponatremia; I48.91 Unspecified atrial fibrillation; E87.5 Hyperkalemia; E78.5 Hyperlipidemia, unspecified; E11.65 Type 2 diabetes mellitus with hyperglycemia; Z20.822 Contact with and (suspected) exposure to COVID-19; I10 Essential (primary) hypertension; F10.20 Alcohol dependence, uncomplicated; Y90.9 Presence of alcohol in blood, level not specified
CPT/HCPCS: 36415; 71045; 76376; 76700-TC; 80048; 80053; 82150; 83690; 83735; 83880; 84484; 85025; 93005; 93306; 99285; C9113; G0378; J2270; J2405; J3010; Q9967

== ENCOUNTER 2022-12-29 01:07 | Emergency (ER) | payer MEDICAID ==
[~2022-12-29] VITALS: Ht 177.8 cm; Wt 79.8 kg
[~2022-12-29 01:07] MED LIST changes: +HYDR-3917 PO
[2022-12-29 01:21] VITALS: BP_SYST 162
[2022-12-29] MEDS ORDERED: KETOROLAC TROMETHAMINE 30 MG VIAL IM ONE (01:45)
[2022-12-29] MEDS ORDERED: LIDOCAINE PATCH 5% 1 EA TP ONE (01:45)
[2022-12-29] MEDS ORDERED: ACET-2634 PO (02:40)
[2022-12-29] MEDS ORDERED: LIDO1ADH77 TP (02:40)
[2022-12-29] MEDS ORDERED: IBUP-1971 PO (02:40)
[2022-12-29 03:00] VITALS: BP_SYST 142
== END 2022-12-29 03:00 | disposition home or self-care (01) ==
LOC: SED 01:07
DX: S22.31XA Fracture of one rib, right side, initial encounter for closed fracture (principal); S80.01XA Contusion of right knee, initial encounter; S50.01XA Contusion of right elbow, initial encounter; E11.9 Type 2 diabetes mellitus without complications; I10 Essential (primary) hypertension; Z79.899 Other long term (current) drug therapy; W01.0XXA Fall on same level from slipping, tripping and stumbling without subsequent striking against object, initial encounter; Y93.89 Activity, other specified; Y92.89 Other specified places as the place of occurrence of the external cause; Y99.8 Other external cause status
CPT/HCPCS: 99284; 71045; 71100; 73080; 73560; 96372; J1885

== ENCOUNTER 2023-07-11 09:12 | Emergency (ER) | payer MEDICAID, OTHER ==
[~2023-07-11] VITALS: Ht 177.8 cm; Wt 79.4 kg
[~2023-07-11 09:12] MED LIST changes: +ACET-2634 PO; +IBUP-1971 PO; +LIDO1ADH77 TP
[2023-07-11] MEDS ORDERED: IBUPROFEN 800 MG TABLET PO ONE (10:00)
[2023-07-11] MEDS ORDERED: HYDROcodone/ACETAMIN 5-325 MG TAB (NORCO/ VICODIN) PO ONE (10:00)
[2023-07-11 10:10] VITALS: RESP 18; TEMP 97.5
[2023-07-11 11:23] LABS: INFLUENZA TYPE A Negative (NEGATIVE); INFLUENZA TYPE B NEGATIVE (NEGATIVE)
[2023-07-11] MEDS ORDERED: IBUP-1971 PO (11:31)
[2023-07-11] MEDS ORDERED: PSEU30TA36 PO (11:31)
[2023-07-11] MEDS ORDERED: DIPH25CA83 PO (11:46)
[2023-07-11 11:56] VITALS: RESP 18; TEMP 97.5
== END 2023-07-11 11:55 | disposition home or self-care (01) ==
LOC: SED 09:12
DX: S93.602A Unspecified sprain of left foot, initial encounter (principal); J40 Bronchitis, not specified as acute or chronic; I10 Essential (primary) hypertension; E11.9 Type 2 diabetes mellitus without complications; Z79.84 Long term (current) use of oral hypoglycemic drugs; Z79.899 Other long term (current) drug therapy; Z20.822 Contact with and (suspected) exposure to COVID-19; X50.1XXA Overexertion from prolonged static or awkward postures, initial encounter; Y93.89 Activity, other specified; Y92.89 Other specified places as the place of occurrence of the external cause; Y99.8 Other external cause status
CPT/HCPCS: 36415; 71045; 99284